=== PATIENT | male | born 1945 | race African-American/Black ===

== ENCOUNTER 2017-12-17 11:06 | Outpatient (CLI) | payer MEDICARE | END 2017-12-17 11:07 | disposition home or self-care (01) | LOC: BICRAD 11:06 | PROVIDERS: ATTEND Family Medicine | DX: J45.901 Unspecified asthma with (acute) exacerbation (principal) | CPT/HCPCS: 71046 ==

== ENCOUNTER 2018-02-10 12:22 | Outpatient (CLI) | payer MEDICARE ==
--- NOTE | 2018-02-11 15:55 | PFT ---
PATIENT HISTORY: HEIGHT: 71.5 WEIGHT: 201 SMOKER: NO HOW LON YRS PACKS PER DAY PRODUCTIVE COUGH: LUNG DISEASE: PHYSICIAN INTERPRETATION FINAL REPORT: Textile Screen Maker comments patient and good effort and cooperation FVC 1.86 (49%), FEV1 1.06 (42%), FEV1/FVC 0.57. TLC 4.19 (68%), FRC 2.28 (80%), RV 2.10 (91%). Diffusion 8.77 (36%). There is a reduction to both the FEV1 and the FVC. The ratio is consistent with obstructive profile. There is a significant improvement in the FVC (13%, 210 mL) following administration of bronchodilator. TLC is at the lower limits of normal. The other lung volumes fall within the normal limits. Diffusion capacity is severely impaired. IMPRESSION: These pulmonary function studies are consistent with severe obstructive lung disease with significant improvement following bronchodilator, and severely impaired gas exchange. The TLC is relatively inflated, but because it is low, a superimposed restrictive component to the ventilatory deficit cannot be excluded. Clinical and radiographic correlation should be considered. Textile Screen Maker: BYRON Practice Lead: BYRON PETERSON
== END 2018-02-10 12:23 | disposition home or self-care (01) ==
LOC: CP 12:22
PROVIDERS: ATTEND Internal Medicine
DX: R06.09 Other forms of dyspnea (principal); G47.33 Obstructive sleep apnea (adult) (pediatric)
CPT/HCPCS: 94060; 94727; 94729

== ENCOUNTER 2018-02-27 19:09 | Emergency (ER) | payer MEDICARE ==
--- NOTE | 2018-02-27 19:46 | RAD ---
ACUTE ABDOMINAL SERIES: 02/27/18 INDICATION: Constipation for five days. FINDINGS: The lungs are clear. Coronary artery stent is seen along the right heart border. Bowel gas pattern is unobstructed. There is a moderate amount of retained stool within the colon. There is endovascular s tents within the region of the common iliac arteries. There are cholecystectomy clips seen within the right upper quadrant. There are scattered degenerative change. IMPRESSION: Moderate amount of retained stool POS: [facility]
[2018-02-27 22:42] LABS: #Eosinphils 0.1 thou/uL (0.0-0.7); #Lymphocytes 1.3 thou/uL (1.20-3.40); #Monocytes 0.8 thou/uL (0.11-0.59); #Neutrophils 5.2 thou/uL (1.40-6.50); %Basophils 0.3 % (0.0-1.0); %Eosinophils 1.5 % (0.0-10.0); %Lymphocytes 17.8 % (21.0-51.0); %Monocytes 10.6 % (0.0-10.0); %Neutrophils 69.7 % (42.0-75.0); Hemoglobin 13.9 g/dL (14.0-18.0); Mean Corpuscular HGB CONC 32.6 g/dL (32.0-36.0); Mean Corpuscular Hemoglobin 27.8 pg (27.0-31.0); Mean Corpuscular Volume 85.5 fl (80.0-94.0); Mean Platelet Volume 7.6 fL (7.4-10.4); Platelet Count 194 thou/uL (130-400); RBC Distribution Width 14.7 % (11.5-14.5); White Blood Cell (WBC) Count 7.4 thou/uL (4.8-10.8)
[2018-02-27 23:01] LABS: ALT (SGPT) 15 U/L (8-55); AST (SGOT) 21 U/L (5-34); Albumin 4.4 g/dL (3.4-4.8); Alkaline Phosphatase 91 U/L (40-150); Anion Gap 12 mmol/L (10-20); BUN (Urea Nitrogen) 24 mg/dL (8.4-25.7); Bilirubin, Total 0.5 mg/dL (0.2-1.2); Calc. Creatinine Clearance 0 mL/min (70-130); Calcium 9.6 mg/dL (7.8-10.44); Carbon Dioxide 25 mmol/L (23-31); Chloride 107 mmol/L (98-107); Estimated GFR-MDRD 54; Globulin 3.8 g/dL (2.4-3.5); Glucose 104 mg/dL (83-110); Lipase 41 U/L (8-78); Potassium 4.2 mmol/L (3.5-5.1); Protein, Total 8.2 g/dL (5.8-8.1); Sodium 140 mmol/L (136-145)
[2018-02-27 23:28] LABS: Bilirubin Negative (Negative); Blood, Urine Negative (Negative); Clarity CLEAR (Clear); Glucose, Urine (Dipstick) Negative (Negative); Leukocyte Negative (Negative); Nitrite Negative (Negative); Protein, Urine (Dipstick) Negative (Neg-Trace); Specific Gravity, Urine 1.013 (1.002-1.036)
== END 2018-02-28 00:37 | disposition home or self-care (01) ==
LOC: ERS 19:09
DX: K59.00 Constipation, unspecified (principal); J44.9 Chronic obstructive pulmonary disease, unspecified; E11.9 Type 2 diabetes mellitus without complications; F32.9 Major depressive disorder, single episode, unspecified; E78.5 Hyperlipidemia, unspecified; I10 Essential (primary) hypertension; F41.9 Anxiety disorder, unspecified; Z85.46 Personal history of malignant neoplasm of prostate
CPT/HCPCS: 36415; 74022; 80053; 81003; 83690; 85025

== ENCOUNTER 2018-03-10 20:30 | Outpatient (CLI) | payer MEDICARE | END 2018-03-10 20:31 | disposition home or self-care (01) | LOC: SLEEPLAB 20:30 | PROVIDERS: ATTEND Internal Medicine | DX: G47.33 Obstructive sleep apnea (adult) (pediatric) (principal); G31.84 Mild cognitive impairment of uncertain or unknown etiology; E66.9 Obesity, unspecified; R06.83 Snoring; R35.1 Nocturia; I11.0 Hypertensive heart disease with heart failure; I50.9 Heart failure, unspecified; E11.9 Type 2 diabetes mellitus without complications | CPT/HCPCS: 95810 ==

== ENCOUNTER 2018-03-27 19:30 | Outpatient (CLI) | payer MEDICARE | END 2018-03-27 19:31 | disposition home or self-care (01) | LOC: SLEEPLAB 19:30 | PROVIDERS: ATTEND Internal Medicine | DX: G47.33 Obstructive sleep apnea (adult) (pediatric) (principal); I11.0 Hypertensive heart disease with heart failure; I50.9 Heart failure, unspecified; E11.9 Type 2 diabetes mellitus without complications; E66.9 Obesity, unspecified; K21.9 Gastro-esophageal reflux disease without esophagitis; R35.1 Nocturia; G31.84 Mild cognitive impairment of uncertain or unknown etiology | CPT/HCPCS: 95811 ==

== ENCOUNTER 2018-08-31 13:43 | Outpatient (CLI) | payer MEDICARE ==
--- NOTE | 2018-08-31 14:21 | RAD ---
CHEST PA AND LATERAL: History: 73-year-old male with history of dyspnea. Comparison: 11-19-17 FINDINGS: Minimal stable increased linear markings in the lung bases. Heart size is within normal limits. No co nfluent pneumonia, overt edema, or pleural effusion. IMPRESSION: Overall stable increased markings, linear, in the lung bases, little changed from prior study. No new process. POS: [facility]
== END 2018-08-31 13:44 | disposition home or self-care (01) ==
LOC: RAD 13:43
PROVIDERS: ATTEND Internal Medicine
DX: R06.00 Dyspnea, unspecified (principal); R91.8 Other nonspecific abnormal finding of lung field
CPT/HCPCS: 71046

== ENCOUNTER 2018-11-08 10:57 | Emergency (ER) | payer MEDICARE ==
--- NOTE | 2018-11-08 11:53 | RAD ---
PORTABLE CHEST ONE VIEW: Date: 11-08-18 Time: 10:39 a.m. History: Cough FINDINGS: Comparison is made with exam of 08-31-18. The heart size is normal. Mild chronic changes are stable. No focal areas of consolidation, pneumothoraces or pleural effusions are identified. IMPRESSION: No acute process. POS: [facility]
[2018-11-08 11:57] LABS: #Eosinphils 0.1 thou/uL (0.0-0.7); #Monocytes 0.6 thou/uL (0.11-0.59); #Neutrophils 4.9 thou/uL (1.40-6.50); %Basophils 0.5 % (0.0-1.0); %Eosinophils 2.2 % (0.0-10.0); %Lymphocytes 15.4 % (21.0-51.0); %Monocytes 9.4 % (0.0-10.0); %Neutrophils 72.6 % (42.0-75.0); Hemoglobin 12.8 g/dL (14.0-18.0); Mean Corpuscular HGB CONC 30.3 g/dL (32.0-36.0); Mean Corpuscular Volume 85.9 fL (78.0-98.0); Platelet Count 250 thou/uL (130-400); RBC Distribution Width 15.8 % (11.5-14.5); Red Blood Cell (RBC) Count 4.92 mill/uL (4.70-6.10); White Blood Cell (WBC) Count 6.7 thou/uL (4.8-10.8)
[2018-11-08 12:17] LABS: ALT (SGPT) 11 U/L (8-55); AST (SGOT) 15 U/L (5-34); Albumin 3.9 g/dL (3.4-4.8); Alkaline Phosphatase 79 U/L (40-150); Anion Gap 15 mmol/L (10-20); BUN (Urea Nitrogen) 22 mg/dL (8.4-25.7); Bilirubin, Total 0.5 mg/dL (0.2-1.2); CK (CPK) 82 U/L (30-200); Calc. Creatinine Clearance 0 mL/min (70-130); Calcium 9.3 mg/dL (7.8-10.44); Carbon Dioxide 26 mmol/L (23-31); Chloride 102 mmol/L (98-107); Estimated GFR-MDRD 51; Globulin 3.6 g/dL (2.4-3.5); Glucose 182 mg/dL (83-110); Potassium 3.9 mmol/L (3.5-5.1); Protein, Total 7.5 g/dL (5.8-8.1); Sodium 139 mmol/L (136-145)
[2018-11-08] MEDS ORDERED: Furosemide 40 MG/4 ML VIAL ONE (12:35)
[2018-11-08 12:38] LABS: CKMB 2.2 ng/mL (0-6.6)
== END 2018-11-08 15:23 | disposition home or self-care (01) ==
LOC: ERS 10:57
DX: J81.1 Chronic pulmonary edema (principal); E11.9 Type 2 diabetes mellitus without complications; E78.5 Hyperlipidemia, unspecified; I10 Essential (primary) hypertension; F41.9 Anxiety disorder, unspecified; F32.9 Major depressive disorder, single episode, unspecified; J44.9 Chronic obstructive pulmonary disease, unspecified; Z79.899 Other long term (current) drug therapy; Z79.84 Long term (current) use of oral hypoglycemic drugs
CPT/HCPCS: 36415; 71045; 80053; 82550; 82553; 83880; 84484; 85025; 93005; 96374; J1940

== ENCOUNTER 2019-05-04 09:22 | Outpatient (CLI) | payer MEDICARE ==
--- NOTE | 2019-05-04 11:34 | CT ---
CT ABDOMEN WITH ORAL AND IV CONTRAST: Date: 05/04/19 HISTORY: Epigastric pain with nausea. FINDINGS: Comparison made with exam of 06/30/16. Chronic changes in the lung bases are again seen. Changes of fatty infiltration of the liver again se en. The patient is post cholecystectomy. The spleen, pancreas, adrenal glands, and right kidney are n ormal. Left renal cyst is again seen. No free air, free fluid, or lymphadenopathy seen in the abdomen. There are vascular calcifications wi th a 3 cm infrarenal abdominal aortic aneurysm. Bilateral common iliac artery stents are again seen. The small bowel loops are not abnormally dilated. There is colonic diverticulosis. Degenerative carlos es are present in the spine. IMPRESSION: 1. Colonic diverticulosis. 2. 3.0 cm abdominal aortic aneurysm. 3. Fatty liver. 4. Left renal cyst. POS: [facility]
[2019-05-04] MEDS ORDERED: ISOVUE-370 76%-LOCM 1 ML ONE (13:43)
== END 2019-05-04 09:23 | disposition home or self-care (01) ==
LOC: BICCT 09:22
PROVIDERS: ATTEND Physician Assistant Medical
DX: R10.13 Epigastric pain (principal); R53.83 Other fatigue; K21.9 Gastro-esophageal reflux disease without esophagitis; K59.00 Constipation, unspecified; D64.9 Anemia, unspecified; K57.30 Diverticulosis of large intestine without perforation or abscess without bleeding; I71.4 Abdominal aortic aneurysm, without rupture; K76.0 Fatty (change of) liver, not elsewhere classified; N28.1 Cyst of kidney, acquired
CPT/HCPCS: 74160; 82565; Q9966

== ENCOUNTER 2020-12-03 09:35 | Emergency (ER) | payer MEDICARE | END 2020-12-03 14:18 | LOC: ERS 09:35 | DX: R06.02 Shortness of breath (principal) | CPT/HCPCS: 99284 ==

== ENCOUNTER 2020-12-23 16:54 | Inpatient (IN) | payer MEDICARE ==
[2020-12-23 17:42] LABS: #Lymphocytes 1.1 thou/uL (1.20-3.40); #Monocytes 0.6 thou/uL (0.11-0.59); #Neutrophils 3.5 thou/uL (1.40-6.50); %Basophils 0.1 % (0.0-1.0); %Eosinophils 0.5 % (0.0-10.0); %Monocytes 11.4 % (0.0-10.0); Hemoglobin 8.7 g/dL (14.0-18.0); Mean Corpuscular Hemoglobin 23.9 pg (27.0-31.0); Mean Corpuscular Volume 77.2 fL (78.0-98.0); Mean Platelet Volume 8.8 fL (7.4-10.4); Platelet Count 229 thou/uL (130-400); RBC Distribution Width 18.8 % (11.5-14.5); Red Blood Cell (RBC) Count 3.63 mill/uL (4.70-6.10); White Blood Cell (WBC) Count 5.2 thou/uL (4.8-10.8)
[2020-12-23] MEDS ORDERED: DOPamine 400 MG/D5W 250 ML 250 ML ONE (17:42)
[2020-12-23 18:05] LABS: ALT (SGPT) 19 U/L (8-55); AST (SGOT) 18 U/L (5-34); Albumin 3.6 g/dL (3.4-4.8); Alkaline Phosphatase 67 U/L (40-110); Anion Gap 19 mmol/L (10-20); BUN (Urea Nitrogen) 68 mg/dL (8.4-25.7); Bilirubin, Total 0.7 mg/dL (0.2-1.2); Calc. Creatinine Clearance 0 mL/min (70-130); Calcium 8.4 mg/dL (7.8-10.44); Carbon Dioxide 19 mmol/L (23-31); Chloride 106 mmol/L (98-107); Globulin 3.1 g/dL (2.4-3.5); Glucose 120 mg/dL (83-110); Lipase 13 U/L (8-78); Potassium 5.9 mmol/L (3.5-5.1); Protein, Total 6.7 g/dL (5.8-8.1); Sodium 138 mmol/L (136-145)
[2020-12-23 18:27] LABS: CKMB 3.6 ng/mL (0-6.6)
[2020-12-23] MEDS ORDERED: INSULIN REGULAR IN 0.9 % NACL 100 UNIT/100 ML BAG ONE (18:58)
[2020-12-23] MEDS ORDERED: Dextrose 50% Abboject 50 ML SYRINGE ONE (18:58)
[2020-12-23] MEDS ORDERED: Insulin Regular 300 UNITS/3 ML VIAL ONE (19:01)
[2020-12-23] MEDS ORDERED: Acetaminophen 325 MG TAB PO PRN (19:39)
[2020-12-23] MEDS ORDERED: Albuterol Sulfate 2.5 mg/3 ml Neb NEB PRN (19:42)
[2020-12-23] MEDS ORDERED: Sodium Chloride 0.9% 1,000 ML IV SCH (19:45)
[2020-12-23 20:01] LABS: Analyzer IN Cardio ER; Base Excess (BEa) -9.6 mEq/L (-2.0 to +3.0); CO2 Tension 33.5 mmHg (35.0-45.0); Calcium, Ionized (arterial) 1.15 mmol/L (1.12-1.30); Carboxyhemoglobin (COHb) 0.4 gm% (0.0-3.0); Hemoglobin (Hb) 9.8 g/dL (14.0-18.0); O2 Tension (PaO2), arterial 140.2 mmHg (> 70.0); Potassium - ABG Lab 4.88 mmol/L (3.70-5.30)
[2020-12-23 20:47] LABS: SARS-CoV-2 NAA Rapid Test Not Detected (NotDetected)
[2020-12-23 21:01] LABS: Puncture Site RRA
[2020-12-23 21:04] LABS: ALV-art Gradient 245.725 mmHg (0-20)
[2020-12-23] MEDS ORDERED: Sodium Bicarbonate 150 MEQ in Dextrose 5% in Water 1,000 ML IV SCH (22:00)
[2020-12-23] MEDS ORDERED: Sodium Bicarb 50 MEQ/50 ML Abboject 8.4% SYRINGE IVP SCH (22:45)
[2020-12-23] MEDS: methylPREDNISolone Sod Succ 40 MG VIAL IVP SCH (23:11)
[2020-12-23 23:34] LABS: Anion Gap 19 mmol/L (10-20); BUN (Urea Nitrogen) 66 mg/dL (8.4-25.7); Calc. Creatinine Clearance 0 mL/min (70-130); Calcium 8.3 mg/dL (7.8-10.44); Carbon Dioxide 17 mmol/L (23-31); Chloride 108 mmol/L (98-107); Glucose 89 mg/dL (83-110); Potassium 5.5 mmol/L (3.5-5.1); Sodium 138 mmol/L (136-145)
[2020-12-23 23:42] VITALS: BMI 28.4
[2020-12-24] MEDS: Ondansetron PF 4 MG/2 ML Vial IVP PRN (02:49)
[2020-12-24] MEDS: DOPamine 400 MG/D5W 250 ML 250 ML IVPB SCH ×2 (03:50→16:38)
[2020-12-24 05:27] LABS: Bacteria/HPF None Seen HPF (None Seen); Bilirubin Negative (Negative); Blood, Urine 3+ (Negative); Clarity Extra Turbid (Clear); Glucose, Urine (Dipstick) Normal (Negative); Ketone, Urine Negative (Negative); Leukocyte 75 Leu/uL (Negative); Nitrite Negative (Negative); Protein, Urine (Dipstick) 300 mg/dL (Neg-Trace); RBC/HPF Greater than 50 HPF (0-3); Specific Gravity, Urine 1.022 (1.002-1.036); WBC/HPF 21-50 HPF (0-3)
[2020-12-24 05:45] LABS: Creatinine, Urine 151.35 mg/dL (63-166)
[2020-12-24 05:52] LABS: Urine Culture Reflex No No
[2020-12-24] MEDS: methylPREDNISolone Sod Succ 40 MG VIAL IVP SCH ×3 (06:13→22:02)
[2020-12-24 06:39] LABS: #Lymphocytes 0.6 thou/uL (1.20-3.40); #Monocytes 0.2 thou/uL (0.11-0.59); #Neutrophils 6.8 thou/uL (1.40-6.50); %Lymphocytes 8.2 % (21.0-51.0); %Monocytes 2.6 % (0.0-10.0); %Neutrophils 89.2 % (42.0-75.0); Hemoglobin 9.2 g/dL (14.0-18.0); Mean Corpuscular HGB CONC 29.5 g/dL (32.0-36.0); Mean Corpuscular Hemoglobin 22.9 pg (27.0-31.0); Mean Corpuscular Volume 77.4 fL (78.0-98.0); Mean Platelet Volume 9.4 fL (7.4-10.4); Platelet Count 269 thou/uL (130-400); Red Blood Cell (RBC) Count 4.04 mill/uL (4.70-6.10); White Blood Cell (WBC) Count 7.6 thou/uL (4.8-10.8)
[2020-12-24 06:57] LABS: Anion Gap 21 mmol/L (10-20); BUN (Urea Nitrogen) 64 mg/dL (8.4-25.7); Calc. Creatinine Clearance 17 mL/min (70-130); Calcium 8.2 mg/dL (7.8-10.44); Carbon Dioxide 14 mmol/L (23-31); Chloride 101 mmol/L (98-107); Glucose 370 mg/dL (83-110); Potassium 5.6 mmol/L (3.5-5.1); Sodium 130 mmol/L (136-145)
[2020-12-24 06:58] LABS: Iron 24 ug/dL (65-175); Iron Binding Capacity, Total 370 mcg/dL (261-462)
[2020-12-24] MEDS ORDERED: Albumin 25% 25 GM/100 ML BOT IVPB SCH (07:45)
[2020-12-24] MEDS ORDERED: Furosemide 100 MG/10 ML VIAL SLOW IVP SCH (07:45)
[2020-12-24] MEDS ORDERED: Dextrose 5% in Water 1,000 ML IV PRN (11:15)
[2020-12-24] MEDS: Iron, Sodium Ferric Gluconate 250 MG in Sodium Chloride 0.9% 100 ML IVPB SCH (11:51)
[2020-12-24] MEDS: Insulin Regular 300 UNITS/3 ML VIAL SC PRN ×2 (11:53→22:02)
[2020-12-24] MEDS ORDERED: Sodium Bicarbonate 150 MEQ in Dextrose 5% in Water 1,000 ML IV SCH ×2 (14:30→21:00)
[2020-12-24 15:05] LABS: Anion Gap 21 mmol/L (10-20); BUN (Urea Nitrogen) 42 mg/dL (8.4-25.7); BUN/Creatinine Ratio 8.09; Calc. Creatinine Clearance 16 mL/min (70-130); Calcium 8.3 mg/dL (7.8-10.44); Carbon Dioxide 19 mmol/L (23-31); Chloride 103 mmol/L (98-107); Glucose 204 mg/dL (83-110); Phosphorus 6.6 mg/dL (2.3-4.7); Potassium 5.4 mmol/L (3.5-5.1); Sodium 138 mmol/L (136-145)
[2020-12-24] MEDS: Sodium Bicarbonate Tab 325 MG TAB PO SCH ×2 (15:39→22:01)
[2020-12-24 15:53] LABS: Complement-C4 33.1 mg/dL (15-53)
[2020-12-24] MEDS ORDERED: metFORMIN 500 MG TAB PO SCH (17:00)
[2020-12-24 20:31] LABS: Anion Gap 22 mmol/L (10-20); BUN (Urea Nitrogen) 76 mg/dL (8.4-25.7); Calc. Creatinine Clearance 16 mL/min (70-130); Calcium 8.3 mg/dL (7.8-10.44); Carbon Dioxide 20 mmol/L (23-31); Chloride 101 mmol/L (98-107); Glucose 167 mg/dL (83-110); Potassium 5.4 mmol/L (3.5-5.1); Sodium 138 mmol/L (136-145)
[2020-12-25] MEDS: DOPamine 400 MG/D5W 250 ML 250 ML IVPB SCH (03:58)
[2020-12-25 04:04] LABS: #Lymphocytes 0.6 thou/uL (1.20-3.40); #Monocytes 0.6 thou/uL (0.11-0.59); #Neutrophils 10.8 thou/uL (1.40-6.50); %Lymphocytes 4.8 % (21.0-51.0); %Neutrophils 90.2 % (42.0-75.0); Mean Corpuscular Hemoglobin 23.1 pg (27.0-31.0); Mean Corpuscular Volume 76.9 fL (78.0-98.0); Mean Platelet Volume 9.3 fL (7.4-10.4); Platelet Count 278 thou/uL (130-400); Red Blood Cell (RBC) Count 3.91 mill/uL (4.70-6.10)
[2020-12-25] MEDS: methylPREDNISolone Sod Succ 40 MG VIAL IVP SCH ×3 (04:07→20:41)
[2020-12-25 04:31] LABS: Albumin 4.1 g/dL (3.4-4.8); Anion Gap 22 mmol/L (10-20); BUN (Urea Nitrogen) 72 mg/dL (8.4-25.7); BUN/Creatinine Ratio 12.86; Calc. Creatinine Clearance 15 mL/min (70-130); Calcium 8.3 mg/dL (7.8-10.44); Carbon Dioxide 23 mmol/L (23-31); Chloride 98 mmol/L (98-107); Glucose 168 mg/dL (83-110); Phosphorus 7.8 mg/dL (2.3-4.7); Potassium 4.9 mmol/L (3.5-5.1); Sodium 138 mmol/L (136-145)
[2020-12-25] MEDS: Insulin Regular 300 UNITS/3 ML VIAL SC PRN ×2 (07:20→11:33)
[2020-12-25] MEDS: Sodium Bicarbonate Tab 325 MG TAB PO SCH ×3 (09:15→20:40)
[2020-12-25] MEDS: Clopidogrel Bisulfate 75 MG TAB PO SCH (09:15)
[2020-12-25] MEDS: Insulin Glargine 5 UNITS in Pre-Filled Syringe 1 EACH SC SCH (09:16)
[2020-12-25] MEDS: Iron, Sodium Ferric Gluconate 250 MG in Sodium Chloride 0.9% 100 ML IVPB SCH (10:16)
[2020-12-25] MEDS ORDERED: Bisacodyl 10 MG SUPP PR SCH (12:00)
[2020-12-25 16:49] LABS: 24 Hr Creatinine 167.75 mg/24 hr (950-2490); Creatinine, Urine 152.5 mg/dL (63-166)
[2020-12-25] MEDS ORDERED: Furosemide 100 MG/10 ML VIAL SLOW IVP SCH (18:30)
[2020-12-25] MEDS: Melatonin 3 MG TAB PO PRN (20:40)
[2020-12-25] MEDS: Atorvastatin Calcium 20 MG TAB PO SCH (20:40)
[2020-12-25 22:47] LABS: HBSAB Concentration Less than 8.00 mIU/mL; HBSAg Index 0.15 S/CO (0-0.99); Hep B Core Total Ab Non-Reactive (NonReactive); Hep B Core Total Index 0.07 S/CO (0-0.79); Hep B Surf AB Non-Reactive (NonReactive); Hep B Surf Ag Non-Reactive S/CO (NonReactive); Hep C IgG Ab Non-Reactive (NonReactive); Hep C Index 0.09 S/CO (0-0.79)
[2020-12-26 04:48] LABS: #Lymphocytes 0.6 thou/uL (1.20-3.40); #Monocytes 0.5 thou/uL (0.11-0.59); #Neutrophils 9.7 thou/uL (1.40-6.50); %Eosinophils 0.1 % (0.0-10.0); %Lymphocytes 5.2 % (21.0-51.0); %Monocytes 4.9 % (0.0-10.0); %Neutrophils 89.8 % (42.0-75.0); Hemoglobin 8.8 g/dL (14.0-18.0); Mean Corpuscular HGB CONC 30.5 g/dL (32.0-36.0); Mean Corpuscular Hemoglobin 23.1 pg (27.0-31.0); Mean Corpuscular Volume 75.8 fL (78.0-98.0); Platelet Count 254 thou/uL (130-400); RBC Distribution Width 18.8 % (11.5-14.5); White Blood Cell (WBC) Count 10.8 thou/uL (4.8-10.8)
[2020-12-26 05:00] LABS: Albumin 3.9 g/dL (3.4-4.8); Anion Gap 20 mmol/L (10-20); BUN (Urea Nitrogen) 87 mg/dL (8.4-25.7); BUN/Creatinine Ratio 13.88; Calc. Creatinine Clearance 13 mL/min (70-130); Calcium 8.2 mg/dL (7.8-10.44); Carbon Dioxide 25 mmol/L (23-31); Chloride 98 mmol/L (98-107); Glucose 151 mg/dL (83-110); Phosphorus 8.5 mg/dL (2.3-4.7); Potassium 4.1 mmol/L (3.5-5.1); Sodium 139 mmol/L (136-145)
[2020-12-26] MEDS ORDERED: Lidocaine 1% w/Epinephrine 1:100K 20 ML VIAL ONE (06:49)
[2020-12-26] MEDS ORDERED: Bupivacaine 0.25% HCL 30 ML VIAL ONE (06:49)
[2020-12-26] MEDS ORDERED: Sodium Chloride 0.9% 20 ML ONE (06:52)
[2020-12-26] MEDS ORDERED: Heparin 10,000 UNITS/ 10 ML VIAL ONE ×2 (06:52→10:08)
[2020-12-26] MEDS ORDERED: PROPOFOL 20 ML ONE (07:10)
[2020-12-26] MEDS ORDERED: Ketamine 50 MG/ML (10ML VIAL) ONE (07:10)
[2020-12-26] MEDS ORDERED: Midazolam HCl 2 mg/2 ml Vial ONE (07:10)
[2020-12-26] MEDS ORDERED: Fentanyl 100 MCG/2 ML VIAL ONE (07:10)
[2020-12-26] MEDS: Clopidogrel Bisulfate 75 MG TAB PO SCH (10:00)
[2020-12-26] MEDS: Insulin Glargine 5 UNITS in Pre-Filled Syringe 1 EACH SC SCH (10:00)
[2020-12-26] MEDS: Sodium Bicarbonate Tab 325 MG TAB PO SCH ×3 (10:01→20:01)
[2020-12-26] MEDS: methylPREDNISolone Sod Succ 40 MG VIAL IVP SCH ×3 (10:02→20:01)
[2020-12-26] MEDS ORDERED: Iron, Sodium Ferric Gluconate 250 MG in Sodium Chloride 0.9% 100 ML IVPB SCH (10:15)
[2020-12-26] MEDS: Iron, Sodium Ferric Gluconate 250 MG in Sodium Chloride 0.9% 100 ML IVPB SCH (10:20)
[2020-12-26] MEDS ORDERED: Lidocaine 1% (PF) 30 ML VIAL ONE (11:28)
[2020-12-26 17:14] LABS: Kappa Lambda Light Chain Ratio 0.86 (0.26-1.65); Kappa Light Chains 207.8 mg/L (3.3-19.4); Lambda Light Chain 242.9 mg/L (5.7-26.3)
[2020-12-26] MEDS: Atorvastatin Calcium 20 MG TAB PO SCH (20:01)
[2020-12-27] MEDS: Insulin Regular 300 UNITS/3 ML VIAL SC PRN (03:18)
[2020-12-27 04:33] LABS: Albumin 3.7 g/dL (3.4-4.8); Anion Gap 20 mmol/L (10-20); BUN (Urea Nitrogen) 70 mg/dL (8.4-25.7); BUN/Creatinine Ratio 14.31; Calc. Creatinine Clearance 17 mL/min (70-130); Calcium 8.1 mg/dL (7.8-10.44); Carbon Dioxide 25 mmol/L (23-31); Chloride 97 mmol/L (98-107); Glucose 158 mg/dL (83-110); Phosphorus 6.8 mg/dL (2.3-4.7); Potassium 3.8 mmol/L (3.5-5.1); Sodium 138 mmol/L (136-145)
[2020-12-27] MEDS: methylPREDNISolone Sod Succ 40 MG VIAL IVP SCH (06:12)
[2020-12-27] MEDS: Sodium Bicarbonate Tab 325 MG TAB PO SCH (08:52)
[2020-12-27] MEDS: Insulin Glargine 5 UNITS in Pre-Filled Syringe 1 EACH SC SCH (08:53)
[2020-12-27] MEDS: Clopidogrel Bisulfate 75 MG TAB PO SCH (08:53)
[2020-12-27] MEDS: predniSONE 20 MG TAB PO SCH (08:53)
[2020-12-27 09:38] LABS: Albumin, PEP 24hr Ur 39.5 % (NOT ESTAB.); Alpha-1-Globulin, PEP 24h Ur 2.2 % (NOT ESTAB.); Alpha-2-Globulin, PEP 24h Ur 5.4 % (NOT ESTAB.); Beta Globulin, PEP 24h Ur 27.3 % (NOT ESTAB.); Gamma Globulin, PEP 24h Ur 25.7 % (NOT ESTAB.); M-Spike,% PEP 24hr Ur Note: % (Not Observed); Protein, Urine 652.9 mg/dL (Not Estab.)
[2020-12-27] MEDS ORDERED: Heparin 10,000 UNITS/ 10 ML VIAL ONE (11:44)
[2020-12-27] MEDS ORDERED: EPOETIN ALFA-EPBX (ESRD) 3,000 UNIT/ML VIAL SC SCH (13:15)
[2020-12-27] MEDS: EPOETIN ALFA-EPBX (ESRD) 2,000 UNIT/ML VIAL SC SCH (13:43)
[2020-12-27] MEDS: EPOETIN ALFA-EPBX (ESRD) 3,000 UNIT/ML VIAL SC SCH (13:43)
[2020-12-27] MEDS: Atorvastatin Calcium 20 MG TAB PO SCH (20:15)
[2020-12-28 05:09] LABS: Albumin 3.8 g/dL (3.4-4.8); Anion Gap 19 mmol/L (10-20); BUN (Urea Nitrogen) 53 mg/dL (8.4-25.7); BUN/Creatinine Ratio 14.36; Calc. Creatinine Clearance 22 mL/min (70-130); Calcium 8.6 mg/dL (7.8-10.44); Carbon Dioxide 27 mmol/L (23-31); Chloride 98 mmol/L (98-107); Glucose 150 mg/dL (83-110); Phosphorus 4.7 mg/dL (2.3-4.7); Potassium 3.7 mmol/L (3.5-5.1); Sodium 140 mmol/L (136-145)
[2020-12-28 07:19] LABS: Hemoglobin 9.2 g/dL (14.0-18.0); Mean Corpuscular HGB CONC 30.6 g/dL (32.0-36.0); Mean Corpuscular Hemoglobin 23.3 pg (27.0-31.0); Mean Corpuscular Volume 75.9 fL (78.0-98.0); Mean Platelet Volume 9.6 fL (7.4-10.4); Platelet Count 226 thou/uL (130-400); RBC Distribution Width 18.9 % (11.5-14.5); Red Blood Cell (RBC) Count 3.94 mill/uL (4.70-6.10); White Blood Cell (WBC) Count 11.3 thou/uL (4.8-10.8)
[2020-12-28] MEDS: Clopidogrel Bisulfate 75 MG TAB PO SCH (07:45)
[2020-12-28] MEDS: predniSONE 20 MG TAB PO SCH (07:45)
[2020-12-28] MEDS: Insulin Glargine 5 UNITS in Pre-Filled Syringe 1 EACH SC SCH (07:46)
[2020-12-28] MEDS ORDERED: Heparin 10,000 UNITS/ 10 ML VIAL ONE (10:22)
[2020-12-28 14:14] LABS: Alb/Glob Ratio 1.1 (0.7-1.7); Albumin 3.6 g/dL (2.9-4.4); Alpha-1-Globulin 0.3 g/dL (0.0-0.4); Alpha-2-Globulin 0.8 g/dL (0.4-1.0); Gamma-Globulin 1.3 g/dL (0.4-1.8); Globulin, Total 3.3 g/dL (2.2-3.9); IgA - Total IgA (Sendout) 418 mg/dL (61-437); Immunoglobulin - G (Sendout) 1094 mg/dL (603-1613); Immunoglobulin - M (Sendout) 54 mg/dL (15-143); M-Spike 0.2 g/dL (Not Observed)
[2020-12-28 16:03] LABS: ANA Symphony (Qualitative) Negative (Negative); ANA Symphony (Quantitative) 0.4 Ratio (< 0.7 Negative); dsDNA IgG Antibody 0.6 IU/mL (<10 Negative)
[2020-12-28] MEDS: Atorvastatin Calcium 20 MG TAB PO SCH (20:31)
[2020-12-28] MEDS: Insulin Glargine 10 UNITS in Pre-Filled Syringe 1 EACH SC SCH (21:46)
[2020-12-29 03:51] LABS: Hemoglobin 9.2 g/dL (14.0-18.0); Mean Corpuscular HGB CONC 30.6 g/dL (32.0-36.0); Mean Corpuscular Hemoglobin 23.2 pg (27.0-31.0); Mean Corpuscular Volume 75.6 fL (78.0-98.0); Platelet Count 200 thou/uL (130-400); Red Blood Cell (RBC) Count 3.97 mill/uL (4.70-6.10); White Blood Cell (WBC) Count 10.3 thou/uL (4.8-10.8)
[2020-12-29] MEDS: Insulin Glargine 5 UNITS in Pre-Filled Syringe 1 EACH SC SCH (09:43)
[2020-12-29] MEDS: predniSONE 20 MG TAB PO SCH (09:44)
[2020-12-29] MEDS: Calcitriol 0.25 MCG CAP PO SCH (09:44)
[2020-12-29] MEDS: Clopidogrel Bisulfate 75 MG TAB PO SCH (09:44)
[2020-12-29 13:20] LABS: Albumin 3.8 g/dL (3.4-4.8); Anion Gap 15 mmol/L (10-20); BUN (Urea Nitrogen) 41 mg/dL (8.4-25.7); BUN/Creatinine Ratio 16.02; Calc. Creatinine Clearance 32 mL/min (70-130); Calcium 8.8 mg/dL (7.8-10.44); Carbon Dioxide 29 mmol/L (23-31); Chloride 98 mmol/L (98-107); Glucose 159 mg/dL (83-110); Phosphorus 2.6 mg/dL (2.3-4.7); Sodium 138 mmol/L (136-145)
[2020-12-29] MEDS ORDERED: Torsemide 20 MG TAB PO SCH (16:15)
[2020-12-29] MEDS: Insulin Regular 300 UNITS/3 ML VIAL SC PRN (17:00)
[2020-12-29] MEDS: Insulin Glargine 10 UNITS in Pre-Filled Syringe 1 EACH SC SCH (20:31)
[2020-12-29] MEDS ORDERED: Sodium Chloride 0.9% 1,000 ML IV SCH (21:00)
[2020-12-29 21:15] LABS: Hemoglobin 10.7 g/dL (14.0-18.0)
[2020-12-29] MEDS ORDERED: Sodium Chloride 0.9% 250 ML IV SCH (21:15)
[2020-12-29 21:30] LABS: Lactic Acid 2.3 mmol/L (0.5-2.2)
[2020-12-29 21:34] LABS: Anion Gap 18 mmol/L (10-20); BUN (Urea Nitrogen) 49 mg/dL (8.4-25.7); Calc. Creatinine Clearance 32 mL/min (70-130); Calcium 8.9 mg/dL (7.8-10.44); Carbon Dioxide 21 mmol/L (23-31); Chloride 99 mmol/L (98-107); Glucose 203 mg/dL (83-110); Magnesium 1.9 mg/dL (1.6-2.6); Sodium 134 mmol/L (136-145)
[2020-12-29] MEDS ORDERED: Insulin Regular 300 UNITS/3 ML VIAL SC PRN (21:35)
[2020-12-29] MEDS: Atorvastatin Calcium 20 MG TAB PO SCH (21:45)
[2020-12-30 05:59] LABS: Lactic Acid 1.3 mmol/L (0.5-2.2)
[2020-12-30 06:00] LABS: Albumin 3.5 g/dL (3.4-4.8); Anion Gap 16 mmol/L (10-20); BUN (Urea Nitrogen) 48 mg/dL (8.4-25.7); BUN/Creatinine Ratio 19.28; Calc. Creatinine Clearance 33 mL/min (70-130); Calcium 9.1 mg/dL (7.8-10.44); Carbon Dioxide 27 mmol/L (23-31); Chloride 100 mmol/L (98-107); Glucose 139 mg/dL (83-110); Phosphorus 2.5 mg/dL (2.3-4.7); Potassium 3.9 mmol/L (3.5-5.1); Sodium 139 mmol/L (136-145)
[2020-12-30 06:05] LABS: ALT (SGPT) 31 U/L (8-55); AST (SGOT) 30 U/L (5-34); Albumin 3.5 g/dL (3.4-4.8); Alkaline Phosphatase 103 U/L (40-110); Anion Gap 15 mmol/L (10-20); BUN (Urea Nitrogen) 49 mg/dL (8.4-25.7); Bilirubin, Total 1.1 mg/dL (0.2-1.2); Calc. Creatinine Clearance 33 mL/min (70-130); Carbon Dioxide 28 mmol/L (23-31); Chloride 99 mmol/L (98-107); Glucose 141 mg/dL (83-110); Magnesium 1.9 mg/dL (1.6-2.6); Potassium 3.8 mmol/L (3.5-5.1); Protein, Total 6.5 g/dL (5.8-8.1); Sodium 138 mmol/L (136-145)
[2020-12-30 06:21] LABS: Bacteria/HPF None Seen HPF (None Seen); Bilirubin Negative (Negative); Blood, Urine 1+ (Negative); Clarity Clear (Clear); Glucose, Urine (Dipstick) Normal (Negative); Ketone, Urine Negative (Negative); Leukocyte 75 Leu/uL (Negative); Nitrite Negative (Negative); Protein, Urine (Dipstick) 30 mg/dL (Neg-Trace); Squamous Epithelial 0-3 HPF (0-3); Urobilinogen Normal mg/dL (Less than 2); WBC/HPF 0-3 HPF (0-3); pH, Urine 6.5 (5.0-9.0)
[2020-12-30 06:22] LABS: Urine Culture Reflex Yes Yes
[2020-12-30 08:22] LABS: Anisocytosis MODERATE=16-30 cells (100X) (0-5/hpf); Band 1 % (5-11); Hemoglobin 10.8 g/dL (14.0-18.0); Lymphocytes 10 % (21-51); MDiff Complete? YES; Mean Corpuscular HGB CONC 31.2 g/dL (32.0-36.0); Mean Corpuscular Hemoglobin 23.6 pg (27.0-31.0); Mean Corpuscular Volume 75.7 fL (78.0-98.0); Mean Platelet Volume 10.1 fL (7.4-10.4); Monocytes 7 % (0-10); Neutrophil 82 % (42-75); Ovalocytes SLIGHT = 2-5 cells (100X) (0-1/hpf); Platelet Count 214 thou/uL (130-400); Poikilocytosis MODERATE=16-30 cells (100X) (0-5/hpf); Polychromasia SLIGHT = 2-3 cells (100X) (0-2/hpf); Red Blood Cell (RBC) Count 4.57 mill/uL (4.70-6.10); White Blood Cell (WBC) Count 14.4 thou/uL (4.8-10.8)
[2020-12-30] MEDS: predniSONE 20 MG TAB PO SCH (08:43)
[2020-12-30] MEDS: Clopidogrel Bisulfate 75 MG TAB PO SCH (08:43)
[2020-12-30] MEDS: Calcitriol 0.25 MCG CAP PO SCH (08:43)
[2020-12-30] MEDS: Insulin Glargine 5 UNITS in Pre-Filled Syringe 1 EACH SC SCH ×2 (09:50→21:29)
[2020-12-30] MEDS: Torsemide 100 MG TAB PO SCH (09:52)
[2020-12-30] MEDS: Insulin Regular 300 UNITS/3 ML VIAL SC PRN ×2 (11:53→17:57)
[2020-12-30] MEDS: Atorvastatin Calcium 20 MG TAB PO SCH (21:29)
[2020-12-30] MEDS: Melatonin 3 MG TAB PO PRN (21:29)
[2020-12-30 21:50] LABS: Anion Gap 16 mmol/L (10-20); Carbon Dioxide 28 mmol/L (23-31); Chloride 99 mmol/L (98-107); Magnesium 1.7 mg/dL (1.6-2.6); Phosphorus 2.9 mg/dL (2.3-4.7); Sodium 139 mmol/L (136-145)
[2020-12-30] MEDS ORDERED: Magnesium 2 GM/50 ML 2 GM in Premix Bag 1 BAG IVPB SCH (22:30)
[2020-12-30] MEDS: Senokot 8.6 MG TAB PO PRN (22:51)
[2020-12-31 06:17] LABS: Albumin 3.3 g/dL (3.4-4.8); Anion Gap 15 mmol/L (10-20); BUN (Urea Nitrogen) 56 mg/dL (8.4-25.7); BUN/Creatinine Ratio 22.31; Calc. Creatinine Clearance 33 mL/min (70-130); Calcium 8.7 mg/dL (7.8-10.44); Carbon Dioxide 31 mmol/L (23-31); Chloride 99 mmol/L (98-107); Glucose 110 mg/dL (83-110); Magnesium 2.2 mg/dL (1.6-2.6); Phosphorus 3.7 mg/dL (2.3-4.7); Potassium 3.9 mmol/L (3.5-5.1); Sodium 141 mmol/L (136-145)
[2020-12-31] MEDS: predniSONE 20 MG TAB PO SCH (08:32)
[2020-12-31] MEDS: Calcitriol 0.25 MCG CAP PO SCH (08:32)
[2020-12-31] MEDS: Clopidogrel Bisulfate 75 MG TAB PO SCH (08:32)
[2020-12-31] MEDS: Magnesium Oxide 250 MG TAB PO SCH (08:33)
[2020-12-31] MEDS: Insulin Glargine 5 UNITS in Pre-Filled Syringe 1 EACH SC SCH ×2 (08:57→21:03)
[2020-12-31] MEDS: Torsemide 100 MG TAB PO SCH (09:02)
[2020-12-31 11:04] LABS: Urine Total Volume 2975 mL (250-2400)
[2020-12-31] MEDS: Ondansetron PF 4 MG/2 ML Vial IVP PRN (11:09)
[2020-12-31] MEDS: Insulin Regular 300 UNITS/3 ML VIAL SC PRN ×2 (11:11→16:57)
[2020-12-31 11:53] LABS: 24 Hr Creatinine 820.8 mg/24 hr (950-2490); Creatinine, Urine 27.59 mg/dL (63-166)
[2020-12-31 11:54] LABS: Protein - 24 Hr 506 mg/24 hr (Less than 300); Protein, Urine 17 mg/dL (1-14)
[2020-12-31 12:01] LABS: #Eosinphils 0.1 thou/uL (0.0-0.7); #Lymphocytes 0.7 thou/uL (1.20-3.40); #Monocytes 0.7 thou/uL (0.11-0.59); #Neutrophils 11.6 thou/uL (1.40-6.50); %Basophils 0.1 % (0.0-1.0); %Eosinophils 0.5 % (0.0-10.0); %Lymphocytes 5.7 % (21.0-51.0); %Monocytes 4.9 % (0.0-10.0); %Neutrophils 88.8 % (42.0-75.0); Hemoglobin 10.3 g/dL (14.0-18.0); Mean Corpuscular HGB CONC 30.1 g/dL (32.0-36.0); Mean Corpuscular Hemoglobin 23.8 pg (27.0-31.0); Mean Corpuscular Volume 79.1 fL (78.0-98.0); Mean Platelet Volume 9.6 fL (7.4-10.4); Platelet Count 203 thou/uL (130-400); RBC Distribution Width 21.2 % (11.5-14.5); White Blood Cell (WBC) Count 13.1 thou/uL (4.8-10.8)
[2020-12-31] MEDS ORDERED: Ferrous Sulfate 325 MG TAB PO SCH (18:15)
[2020-12-31] MEDS ORDERED: Pravastatin Sodium 40 MG TAB PO SCH (21:00)
[2020-12-31] MEDS: Atorvastatin Calcium 20 MG TAB PO SCH (21:03)
[2020-12-31] MEDS: Senokot 8.6 MG TAB PO PRN (22:40)
[2020-12-31] MEDS: Melatonin 3 MG TAB PO PRN (22:40)
[2021-01-01] MEDS ORDERED: Metolazone 5 MG TAB PO SCH (09:00)
[2021-01-01 09:09] LABS: Hemoglobin 10.2 g/dL (14.0-18.0); Mean Corpuscular HGB CONC 29.3 g/dL (32.0-36.0); Mean Corpuscular Hemoglobin 23.7 pg (27.0-31.0); Mean Corpuscular Volume 80.9 fL (78.0-98.0); Mean Platelet Volume 10.3 fL (7.4-10.4); Platelet Count 190 thou/uL (130-400); RBC Distribution Width 23.9 % (11.5-14.5); Red Blood Cell (RBC) Count 4.32 mill/uL (4.70-6.10); White Blood Cell (WBC) Count 15.1 thou/uL (4.8-10.8)
[2021-01-01 09:21] LABS: Albumin 3.3 g/dL (3.4-4.8); Anion Gap 17 mmol/L (10-20); BUN (Urea Nitrogen) 63 mg/dL (8.4-25.7); BUN/Creatinine Ratio 25.71; Calc. Creatinine Clearance 34 mL/min (70-130); Calcium 8.9 mg/dL (7.8-10.44); Carbon Dioxide 30 mmol/L (23-31); Chloride 97 mmol/L (98-107); Glucose 146 mg/dL (83-110); Phosphorus 4.1 mg/dL (2.3-4.7); Potassium 4.2 mmol/L (3.5-5.1); Sodium 140 mmol/L (136-145)
[2021-01-01] MEDS: Ferrous Sulfate 325 MG TAB PO SCH ×2 (09:31→17:01)
[2021-01-01] MEDS: predniSONE 20 MG TAB PO SCH (09:31)
[2021-01-01] MEDS: Calcitriol 0.25 MCG CAP PO SCH (09:31)
[2021-01-01] MEDS: Magnesium Oxide 250 MG TAB PO SCH (09:31)
[2021-01-01] MEDS: Insulin Glargine 5 UNITS in Pre-Filled Syringe 1 EACH SC SCH ×2 (09:31→19:49)
[2021-01-01] MEDS: Clopidogrel Bisulfate 75 MG TAB PO SCH (09:31)
[2021-01-01] MEDS: Torsemide 100 MG TAB PO SCH (09:36)
[2021-01-01] MEDS: Insulin Regular 300 UNITS/3 ML VIAL SC PRN (17:01)
[2021-01-01] MEDS: Melatonin 3 MG TAB PO PRN (19:48)
[2021-01-01] MEDS: Atorvastatin Calcium 20 MG TAB PO SCH (19:50)
[2021-01-02] MEDS: Insulin Regular 300 UNITS/3 ML VIAL SC PRN (06:07)
[2021-01-02 06:23] LABS: Albumin 3.5 g/dL (3.4-4.8); Anion Gap 17 mmol/L (10-20); BUN (Urea Nitrogen) 80 mg/dL (8.4-25.7); BUN/Creatinine Ratio 28.47; Calc. Creatinine Clearance 29 mL/min (70-130); Calcium 9.9 mg/dL (7.8-10.44); Carbon Dioxide 31 mmol/L (23-31); Chloride 95 mmol/L (98-107); Glucose 166 mg/dL (83-110); Potassium 4.4 mmol/L (3.5-5.1); Sodium 139 mmol/L (136-145)
[2021-01-02] MEDS: Magnesium Oxide 250 MG TAB PO SCH (08:36)
[2021-01-02] MEDS: Clopidogrel Bisulfate 75 MG TAB PO SCH (08:36)
[2021-01-02] MEDS: predniSONE 20 MG TAB PO SCH (08:37)
[2021-01-02] MEDS: Ferrous Sulfate 325 MG TAB PO SCH ×2 (08:37→16:03)
[2021-01-02] MEDS: Calcitriol 0.25 MCG CAP PO SCH (08:37)
[2021-01-02] MEDS: Torsemide 100 MG TAB PO SCH (08:38)
[2021-01-02] MEDS: Insulin Glargine 5 UNITS in Pre-Filled Syringe 1 EACH SC SCH (09:59)
[2021-01-02 11:03] LABS: Hemoglobin 11.5 g/dL (14.0-18.0); Mean Corpuscular Hemoglobin 24.4 pg (27.0-31.0); Mean Corpuscular Volume 81.5 fL (78.0-98.0); Mean Platelet Volume 10.1 fL (7.4-10.4); Platelet Count 217 thou/uL (130-400); RBC Distribution Width 24.3 % (11.5-14.5); Red Blood Cell (RBC) Count 4.69 mill/uL (4.70-6.10)
[2021-01-02] MEDS ORDERED: Amoxicillin/Potassium Clav 875 MG TAB PO SCH (12:15)
[2021-01-02 15:38] LABS: M-Spike,% 5.2 % (Not Observed)
[2021-01-02] MEDS: Sodium Chloride 0.9% 1,000 ML IV SCH (18:30)
[2021-01-02] MEDS: Lantus 1000 UNITS/10 ML VIAL SC SCH (21:04)
[2021-01-02] MEDS: Atorvastatin Calcium 20 MG TAB PO SCH (21:04)
[2021-01-02] MEDS: Amoxicillin/Potassium Clav 875 MG TAB PO SCH (21:04)
[2021-01-03 05:04] LABS: Hemoglobin 9.8 g/dL (14.0-18.0); Mean Corpuscular HGB CONC 30.9 g/dL (32.0-36.0); Mean Corpuscular Hemoglobin 25.2 pg (27.0-31.0); Mean Corpuscular Volume 81.6 fL (78.0-98.0); Mean Platelet Volume 9.9 fL (7.4-10.4); Platelet Count 185 thou/uL (130-400); RBC Distribution Width 24.2 % (11.5-14.5); White Blood Cell (WBC) Count 16.2 thou/uL (4.8-10.8)
[2021-01-03 05:18] LABS: Anion Gap 16 mmol/L (10-20); BUN (Urea Nitrogen) 85 mg/dL (8.4-25.7); Calc. Creatinine Clearance 31 mL/min (70-130); Calcium 9.3 mg/dL (7.8-10.44); Carbon Dioxide 33 mmol/L (23-31); Chloride 92 mmol/L (98-107); Glucose 125 mg/dL (83-110); Potassium 4.1 mmol/L (3.5-5.1); Sodium 137 mmol/L (136-145)
[2021-01-03] MEDS: Clopidogrel Bisulfate 75 MG TAB PO SCH (08:53)
[2021-01-03] MEDS: Magnesium Oxide 250 MG TAB PO SCH (08:54)
[2021-01-03] MEDS: Calcitriol 0.25 MCG CAP PO SCH (08:54)
[2021-01-03] MEDS: Amoxicillin/Potassium Clav 875 MG TAB PO SCH ×2 (08:54→21:04)
[2021-01-03] MEDS: Lantus 1000 UNITS/10 ML VIAL SC SCH ×2 (08:54→20:30)
[2021-01-03] MEDS: Ferrous Sulfate 325 MG TAB PO SCH ×2 (08:54→18:00)
[2021-01-03] MEDS: EPOETIN ALFA-EPBX (ESRD) 2,000 UNIT/ML VIAL SC SCH (15:06)
[2021-01-03] MEDS: Sodium Chloride 0.9% 1,000 ML IV SCH (15:06)
[2021-01-03] MEDS: EPOETIN ALFA-EPBX (ESRD) 3,000 UNIT/ML VIAL SC SCH (15:06)
[2021-01-03] MEDS: Dextrose 50% Abboject 50 ML SYRINGE IVP PRN (20:31)
[2021-01-03] MEDS: Atorvastatin Calcium 20 MG TAB PO SCH (21:04)
[2021-01-04] MEDS: Dextrose 50% Abboject 50 ML SYRINGE IVP PRN (01:09)
[2021-01-04] MEDS ORDERED: Dextrose 5 %-0.45 % NaCl 1,000 ML IV SCH (03:45)
[2021-01-04 06:37] LABS: Hemoglobin 11.2 g/dL (14.0-18.0); Mean Corpuscular HGB CONC 29.3 g/dL (32.0-36.0); Mean Corpuscular Hemoglobin 24.3 pg (27.0-31.0); Mean Platelet Volume 10.3 fL (7.4-10.4); Platelet Count 190 thou/uL (130-400); RBC Distribution Width 24.8 % (11.5-14.5)
[2021-01-04 08:29] LABS: Albumin 3.6 g/dL (3.4-4.8); Anion Gap 16 mmol/L (10-20); BUN (Urea Nitrogen) 77 mg/dL (8.4-25.7); BUN/Creatinine Ratio 30.43; Calc. Creatinine Clearance 32 mL/min (70-130); Calcium 9.1 mg/dL (7.8-10.44); Carbon Dioxide 34 mmol/L (23-31); Chloride 92 mmol/L (98-107); Glucose 98 mg/dL (83-110); Phosphorus 4.1 mg/dL (2.3-4.7); Potassium 4.3 mmol/L (3.5-5.1); Sodium 138 mmol/L (136-145)
[2021-01-04] MEDS: Calcitriol 0.25 MCG CAP PO SCH (09:57)
[2021-01-04] MEDS: Magnesium Oxide 250 MG TAB PO SCH (09:57)
[2021-01-04] MEDS: Clopidogrel Bisulfate 75 MG TAB PO SCH (09:57)
[2021-01-04] MEDS: Ferrous Sulfate 325 MG TAB PO SCH ×2 (09:57→16:47)
[2021-01-04] MEDS: Amoxicillin/Potassium Clav 875 MG TAB PO SCH ×2 (09:58→20:10)
[2021-01-04] MEDS: Atorvastatin Calcium 20 MG TAB PO SCH (20:10)
[2021-01-04] MEDS: Melatonin 3 MG TAB PO PRN (23:37)
[2021-01-05 04:59] LABS: Hemoglobin 9.3 g/dL (14.0-18.0); Mean Corpuscular HGB CONC 27.8 g/dL (32.0-36.0); Mean Corpuscular Hemoglobin 23.1 pg (27.0-31.0); Mean Corpuscular Volume 82.9 fL (78.0-98.0); Platelet Count 197 thou/uL (130-400); Red Blood Cell (RBC) Count 4.02 mill/uL (4.70-6.10); White Blood Cell (WBC) Count 13.3 thou/uL (4.8-10.8)
[2021-01-05 05:19] LABS: Albumin 3.3 g/dL (3.4-4.8); Anion Gap 17 mmol/L (10-20); BUN (Urea Nitrogen) 74 mg/dL (8.4-25.7); BUN/Creatinine Ratio 29.13; Calc. Creatinine Clearance 32 mL/min (70-130); Calcium 8.7 mg/dL (7.8-10.44); Carbon Dioxide 31 mmol/L (23-31); Chloride 93 mmol/L (98-107); Glucose 107 mg/dL (83-110); Phosphorus 3.4 mg/dL (2.3-4.7); Potassium 4.2 mmol/L (3.5-5.1); Sodium 137 mmol/L (136-145)
[2021-01-05] MEDS: Ferrous Sulfate 325 MG TAB PO SCH ×2 (08:55→16:18)
[2021-01-05] MEDS: Calcitriol 0.25 MCG CAP PO SCH (08:56)
[2021-01-05] MEDS: Amoxicillin/Potassium Clav 875 MG TAB PO SCH (08:56)
[2021-01-05] MEDS: Magnesium Oxide 250 MG TAB PO SCH (08:56)
[2021-01-05] MEDS: Clopidogrel Bisulfate 75 MG TAB PO SCH (08:56)
[2021-01-05] MEDS: Senokot 8.6 MG TAB PO PRN (08:59)
[2021-01-05 15:28] VITALS: BP 105/58; TEMP 97.5
== END 2021-01-05 18:49 | DRG 673 ==
LOC: ERS 16:54 → CCU 18:31 → IMCU/EMU 22:45 → CCU 22:50 → 2SE 12-29 06:36
PROVIDERS: ADMIT Internal Medicine; ATTEND Internal Medicine
PROC: 0JH63XZ Insertion of Tunneled Vascular Access Device into Chest Subcutaneous Tissue and Fascia, Percutaneous Approach (ICD-10-PCS; principal; 2020-12-26)
PROC: 02HV33Z Insertion of Infusion Device into Superior Vena Cava, Percutaneous Approach (ICD-10-PCS; 2020-12-26)
PROC: B548ZZA Ultrasonography of Superior Vena Cava, Guidance (ICD-10-PCS; 2020-12-26)
PROC: 5A1D70Z Performance of Urinary Filtration, Intermittent, Less than 6 Hours Per Day (ICD-10-PCS; 2020-12-26)
DX: N17.0 Acute kidney failure with tubular necrosis (principal); J96.21 Acute and chronic respiratory failure with hypoxia; J18.9 Pneumonia, unspecified organism; I50.32 Chronic diastolic (congestive) heart failure; I13.0 Hypertensive heart and chronic kidney disease with heart failure and stage 1 through stage 4 chronic kidney disease, or unspecified chronic kidney disease; E87.2 Acidosis; J90 Pleural effusion, not elsewhere classified; E87.3 Alkalosis; J44.0 Chronic obstructive pulmonary disease with (acute) lower respiratory infection; I49.5 Sick sinus syndrome; Z20.822 Contact with and (suspected) exposure to COVID-19; J44.9 Chronic obstructive pulmonary disease, unspecified; E78.5 Hyperlipidemia, unspecified; E78.00 Pure hypercholesterolemia, unspecified; F41.9 Anxiety disorder, unspecified; F32.9 Major depressive disorder, single episode, unspecified; I25.10 Atherosclerotic heart disease of native coronary artery without angina pectoris; I73.9 Peripheral vascular disease, unspecified; E11.51 Type 2 diabetes mellitus with diabetic peripheral angiopathy without gangrene; N25.81 Secondary hyperparathyroidism of renal origin; N18.31 Chronic kidney disease, stage 3a; E11.22 Type 2 diabetes mellitus with diabetic chronic kidney disease; E87.5 Hyperkalemia; I48.0 Paroxysmal atrial fibrillation; D63.1 Anemia in chronic kidney disease; D50.9 Iron deficiency anemia, unspecified; K21.9 Gastro-esophageal reflux disease without esophagitis; I08.1 Rheumatic disorders of both mitral and tricuspid valves; Z85.46 Personal history of malignant neoplasm of prostate; Z88.6 Allergy status to analgesic agent; Z87.891 Personal history of nicotine dependence; Z90.49 Acquired absence of other specified parts of digestive tract; Z86.711 Personal history of pulmonary embolism; Z98.890 Other specified postprocedural states; Z99.81 Dependence on supplemental oxygen; Z79.899 Other long term (current) drug therapy; Z79.52 Long term (current) use of systemic steroids; Z79.84 Long term (current) use of oral hypoglycemic drugs
CPT/HCPCS: 36415; 36416; 36600; 51702; 70450; 71045; 74018; 74176; 76770; 80048; 80053; 80069; 81001; 82040; 82306; 82553; 82570; 82728; 82805; 83540; 83550; 83605; 83690; 83735; 83883; 83970; 84100; 84155; 84156; 84165; 84166; 84300; 84443; 84484; 84540; 85025; 85027; 86038; 86160; 86225; 86334; 86335; 86704; 86706; 86803; 87086; 87340; 90935; 93005; 93010; 93306; 93970; 94150; 94640; 94660; 96365; 96366; 96375; 99292; C1752; G0257; J1265; J1642; J1644; J1815; J1940; J2250; J2405; J2704; J2916; J2920; J3010; J3475; J3490; J7070; J7512; J7620; P9047; Q5105; S0020; U0002

== ENCOUNTER 2021-02-19 22:25 | Inpatient (IN) | payer MEDICARE ==
[~2021-02-19 22:25] MED LIST: Iopamidol-370 76% 500 ML 1 ML ONE
[2021-02-19 23:30] LABS: ALT (SGPT) 11 U/L (8-55); AST (SGOT) 20 U/L (5-34); Albumin 3.2 g/dL (3.4-4.8); Alkaline Phosphatase 69 U/L (40-110); Anion Gap 13 mmol/L (10-20); BUN (Urea Nitrogen) 22 mg/dL (8.4-25.7); Bilirubin, Total 0.5 mg/dL (0.2-1.2); Calc. Creatinine Clearance 0 mL/min (70-130); Calcium 8.7 mg/dL (7.8-10.44); Carbon Dioxide 29 mmol/L (23-31); Chloride 98 mmol/L (98-107); Globulin 3.5 g/dL (2.4-3.5); Glucose 113 mg/dL (83-110); Potassium 3.3 mmol/L (3.5-5.1); Protein, Total 6.7 g/dL (5.8-8.1); Sodium 137 mmol/L (136-145)
[2021-02-19 23:32] LABS: #Eosinphils 0.1 thou/uL (0.0-0.7); #Lymphocytes 1.9 thou/uL (1.20-3.40); #Monocytes 0.9 thou/uL (0.11-0.59); #Neutrophils 5.4 thou/uL (1.40-6.50); %Basophils 0.4 % (0.0-1.0); %Eosinophils 0.8 % (0.0-10.0); %Lymphocytes 23.1 % (21.0-51.0); %Monocytes 10.9 % (0.0-10.0); %Neutrophils 64.7 % (42.0-75.0); Mean Corpuscular HGB CONC 29.5 g/dL (32.0-36.0); Mean Corpuscular Hemoglobin 26.9 pg (27.0-31.0); Mean Corpuscular Volume 91.2 fL (78.0-98.0); Mean Platelet Volume 7.3 fL (7.4-10.4); Platelet Count 266 thou/uL (130-400); RBC Distribution Width 17.5 % (11.5-14.5); Red Blood Cell (RBC) Count 3.34 mill/uL (4.70-6.10); White Blood Cell (WBC) Count 8.3 thou/uL (4.8-10.8)
[2021-02-19] MEDS ORDERED: Cefepime 2 GM VIAL ONE (23:52)
[2021-02-20] MEDS ORDERED: Vancomycin 1 GM/200 ML BAG ONE (00:03)
[2021-02-20] MEDS ORDERED: Dextrose 5% in Water 1,000 ML IV PRN (00:34)
[2021-02-20] MEDS ORDERED: Senokot S 8.6-50 MG TAB PO PRN (00:34)
[2021-02-20] MEDS ORDERED: Bisacodyl 10 MG SUPP PR PRN (00:34)
[2021-02-20] MEDS ORDERED: Calcium Carbonate 500 MG ChewTAB PO PRN (00:34)
[2021-02-20] MEDS ORDERED: Guaifenesin DM 100-10/5 ML UDCUP PO PRN (00:34)
[2021-02-20] MEDS ORDERED: HumaLOG 300 UNITS/3 ML VIAL SC PRN ×2 (00:34)
[2021-02-20] MEDS ORDERED: Loperamide HCl 2 MG CAP PO PRN (00:34)
[2021-02-20] MEDS ORDERED: Dextrose 50% Abboject 50 ML SYRINGE SLOW IVP PRN (00:34)
[2021-02-20] MEDS ORDERED: HYDROcodone/Acetaminophen 5/325 mg Tablet PO PRN (00:34)
[2021-02-20] MEDS ORDERED: Acetaminophen 325 MG TAB PO PRN (00:34)
[2021-02-20 01:51] LABS: #Lymphocytes 0.5 thou/uL (1.20-3.40); #Monocytes 0.1 thou/uL (0.11-0.59); #Neutrophils 8.1 thou/uL (1.40-6.50); %Eosinophils 0.1 % (0.0-10.0); %Lymphocytes 5.2 % (21.0-51.0); %Monocytes 1.6 % (0.0-10.0); %Neutrophils 93.1 % (42.0-75.0); Hemoglobin 9.2 g/dL (14.0-18.0); Mean Corpuscular HGB CONC 29.7 g/dL (32.0-36.0); Mean Corpuscular Hemoglobin 27.3 pg (27.0-31.0); Mean Corpuscular Volume 91.8 fL (78.0-98.0); Platelet Count 255 thou/uL (130-400); RBC Distribution Width 17.3 % (11.5-14.5); Red Blood Cell (RBC) Count 3.37 mill/uL (4.70-6.10); White Blood Cell (WBC) Count 8.7 thou/uL (4.8-10.8)
[2021-02-20 01:57] LABS: SARS-CoV-2 NAA Rapid Test Not Detected (NotDetected)
[2021-02-20 02:08] LABS: Lactic Acid 2.3 mmol/L (0.5-2.2)
[2021-02-20 02:24] LABS: Troponin I 0.344 ng/mL (< 0.028)
[2021-02-20 02:38] LABS: Anion Gap 14 mmol/L (10-20); BUN (Urea Nitrogen) 24 mg/dL (8.4-25.7); Calc. Creatinine Clearance 0 mL/min (70-130); Carbon Dioxide 28 mmol/L (23-31); Chloride 97 mmol/L (98-107); Glucose 146 mg/dL (83-110); Sodium 136 mmol/L (136-145)
[2021-02-20 06:04] VITALS: BMI 23.7
[2021-02-20] MEDS ORDERED: Heparin 10,000 UNITS/ 10 ML VIAL ONE ×2 (07:21→09:30)
[2021-02-20 07:26] LABS: Troponin I 0.345 ng/mL (< 0.028)
[2021-02-20] MEDS ORDERED: Potassium Chloride 20 MEQ TAB PO SCH (08:54)
[2021-02-20] MEDS ORDERED: Potassium Chloride 20 MEQ TAB ONE (09:29)
[2021-02-20] MEDS: Doxycycline 100 MG CAP PO SCH ×2 (09:31→21:18)
[2021-02-20] MEDS: Heparin 5,000 UNITS/ML VIAL SC SCH ×3 (09:31→21:18)
[2021-02-20] MEDS ORDERED: Clopidogrel Bisulfate 300 MG TAB PO SCH (14:00)
[2021-02-20] MEDS: Nitroglycerin 2% Ointment 1 INCH/1 GM Packet TOP SCH ×2 (15:07→21:18)
[2021-02-20] MEDS: Cefepime 0.5 GM in Sodium Chloride 0.9% 100 ML IVPB SCH (21:18)
[2021-02-21] MEDS ORDERED: Melatonin 3 MG TAB PO SCH (01:30)
[2021-02-21 04:47] LABS: #Monocytes 0.8 thou/uL (0.11-0.59); #Neutrophils 6.2 thou/uL (1.40-6.50); %Basophils 0.2 % (0.0-1.0); %Eosinophils 0.3 % (0.0-10.0); %Monocytes 9.6 % (0.0-10.0); Hemoglobin 9.1 g/dL (14.0-18.0); Mean Corpuscular HGB CONC 29.7 g/dL (32.0-36.0); Mean Corpuscular Hemoglobin 27.3 pg (27.0-31.0); Mean Corpuscular Volume 91.9 fL (78.0-98.0); Mean Platelet Volume 7.7 fL (7.4-10.4); Platelet Count 271 thou/uL (130-400); RBC Distribution Width 17.5 % (11.5-14.5); Red Blood Cell (RBC) Count 3.35 mill/uL (4.70-6.10); White Blood Cell (WBC) Count 7.9 thou/uL (4.8-10.8)
[2021-02-21 05:07] LABS: Anion Gap 14 mmol/L (10-20); BUN (Urea Nitrogen) 21 mg/dL (8.4-25.7); Calc. Creatinine Clearance 20 mL/min (70-130); Carbon Dioxide 27 mmol/L (23-31); Chloride 100 mmol/L (98-107); Potassium 3.7 mmol/L (3.5-5.1); Sodium 137 mmol/L (136-145)
[2021-02-21 05:08] LABS: Albumin 3.2 g/dL (3.4-4.8); BUN/Creatinine Ratio 6.02; Calcium 8.7 mg/dL (7.8-10.44); Glucose 152 mg/dL (83-110); Phosphorus 2.4 mg/dL (2.3-4.7)
[2021-02-21] MEDS: Nitroglycerin 2% Ointment 1 INCH/1 GM Packet TOP SCH ×3 (05:34→21:32)
[2021-02-21] MEDS: Doxycycline 100 MG CAP PO SCH ×2 (08:44→20:51)
[2021-02-21] MEDS: Clopidogrel Bisulfate 75 MG TAB PO SCH (08:44)
[2021-02-21] MEDS: Heparin 5,000 UNITS/ML VIAL SC SCH ×3 (08:44→20:51)
[2021-02-21] MEDS ORDERED: Torsemide 20 MG TAB PO SCH (10:15)
[2021-02-21] MEDS ORDERED: Spironolactone 25 MG TAB PO SCH (10:15)
[2021-02-21] MEDS: Atorvastatin Calcium 10 MG TAB PO SCH (20:51)
[2021-02-21] MEDS: Melatonin 3 MG TAB PO SCH (20:51)
[2021-02-21] MEDS: Zolpidem Tartrate 5 MG TAB PO PRN (20:51)
[2021-02-21] MEDS: Cefepime 0.5 GM in Sodium Chloride 0.9% 100 ML IVPB SCH (21:31)
[2021-02-22 05:07] LABS: #Eosinphils 0.1 thou/uL (0.0-0.7); #Lymphocytes 1.1 thou/uL (1.20-3.40); #Monocytes 1.2 thou/uL (0.11-0.59); #Neutrophils 7.4 thou/uL (1.40-6.50); %Basophils 0.4 % (0.0-1.0); %Eosinophils 0.8 % (0.0-10.0); %Neutrophils 75.9 % (42.0-75.0); Hemoglobin 9.5 g/dL (14.0-18.0); Mean Corpuscular HGB CONC 29.8 g/dL (32.0-36.0); Mean Corpuscular Hemoglobin 27.5 pg (27.0-31.0); Mean Corpuscular Volume 92.4 fL (78.0-98.0); Mean Platelet Volume 7.3 fL (7.4-10.4); Platelet Count 299 thou/uL (130-400); RBC Distribution Width 17.7 % (11.5-14.5); Red Blood Cell (RBC) Count 3.46 mill/uL (4.70-6.10); White Blood Cell (WBC) Count 9.8 thou/uL (4.8-10.8)
[2021-02-22] MEDS: Nitroglycerin 2% Ointment 1 INCH/1 GM Packet TOP SCH ×3 (05:19→21:28)
[2021-02-22 05:21] LABS: Anion Gap 16 mmol/L (10-20); BUN (Urea Nitrogen) 31 mg/dL (8.4-25.7); Calc. Creatinine Clearance 16 mL/min (70-130); Calcium 9.3 mg/dL (7.8-10.44); Carbon Dioxide 23 mmol/L (23-31); Chloride 99 mmol/L (98-107); Glucose 115 mg/dL (83-110); Potassium 4.1 mmol/L (3.5-5.1); Sodium 134 mmol/L (136-145)
[2021-02-22] MEDS ORDERED: Heparin 10,000 UNITS/ 10 ML VIAL ONE (11:06)
[2021-02-22] MEDS: Doxycycline 100 MG CAP PO SCH ×2 (12:40→21:27)
[2021-02-22] MEDS: Torsemide 20 MG TAB PO SCH (12:41)
[2021-02-22] MEDS: Spironolactone 25 MG TAB PO SCH (12:41)
[2021-02-22] MEDS: Clopidogrel Bisulfate 75 MG TAB PO SCH (12:42)
[2021-02-22] MEDS: Heparin 5,000 UNITS/ML VIAL SC SCH ×3 (12:43→21:28)
[2021-02-22] MEDS: Atorvastatin Calcium 10 MG TAB PO SCH (21:27)
[2021-02-22] MEDS: Zolpidem Tartrate 5 MG TAB PO PRN (21:27)
[2021-02-22] MEDS: Cefepime 0.5 GM in Sodium Chloride 0.9% 100 ML IVPB SCH (21:28)
[2021-02-22] MEDS: Melatonin 3 MG TAB PO SCH (21:28)
[2021-02-23] MEDS: Nitroglycerin 2% Ointment 1 INCH/1 GM Packet TOP SCH ×3 (05:09→21:24)
[2021-02-23] MEDS: Doxycycline 100 MG CAP PO SCH ×2 (09:07→21:23)
[2021-02-23] MEDS: Spironolactone 25 MG TAB PO SCH (09:07)
[2021-02-23] MEDS: Clopidogrel Bisulfate 75 MG TAB PO SCH (09:07)
[2021-02-23] MEDS: Heparin 5,000 UNITS/ML VIAL SC SCH ×3 (09:07→21:22)
[2021-02-23] MEDS: Torsemide 20 MG TAB PO SCH (09:07)
[2021-02-23] MEDS: Zolpidem Tartrate 5 MG TAB PO PRN (21:23)
[2021-02-23] MEDS: Cefepime 0.5 GM in Sodium Chloride 0.9% 100 ML IVPB SCH (21:23)
[2021-02-23] MEDS: Melatonin 3 MG TAB PO SCH (21:23)
[2021-02-23] MEDS: Atorvastatin Calcium 10 MG TAB PO SCH (21:23)
[2021-02-24 04:56] LABS: Anion Gap 17 mmol/L (10-20); BUN (Urea Nitrogen) 26 mg/dL (8.4-25.7); Calc. Creatinine Clearance 17 mL/min (70-130); Calcium 8.9 mg/dL (7.8-10.44); Carbon Dioxide 25 mmol/L (23-31); Chloride 99 mmol/L (98-107); Glucose 106 mg/dL (83-110); Potassium 3.8 mmol/L (3.5-5.1); Sodium 137 mmol/L (136-145)
[2021-02-24 05:11] LABS: #Eosinphils 0.1 thou/uL (0.0-0.7); #Lymphocytes 1.1 thou/uL (1.20-3.40); #Monocytes 1.1 thou/uL (0.11-0.59); %Basophils 0.5 % (0.0-1.0); %Lymphocytes 13.3 % (21.0-51.0); %Monocytes 13.2 % (0.0-10.0); %Neutrophils 72.1 % (42.0-75.0); Hemoglobin 9.6 g/dL (14.0-18.0); Mean Corpuscular HGB CONC 29.5 g/dL (32.0-36.0); Mean Corpuscular Volume 91.4 fL (78.0-98.0); Mean Platelet Volume 7.3 fL (7.4-10.4); Platelet Count 284 thou/uL (130-400); Red Blood Cell (RBC) Count 3.55 mill/uL (4.70-6.10); White Blood Cell (WBC) Count 8.3 thou/uL (4.8-10.8)
[2021-02-24] MEDS: Nitroglycerin 2% Ointment 1 INCH/1 GM Packet TOP SCH ×2 (05:54→14:22)
[2021-02-24] MEDS: Spironolactone 25 MG TAB PO SCH (09:26)
[2021-02-24] MEDS: Doxycycline 100 MG CAP PO SCH ×2 (09:26→21:23)
[2021-02-24] MEDS: Clopidogrel Bisulfate 75 MG TAB PO SCH (09:26)
[2021-02-24] MEDS: Torsemide 20 MG TAB PO SCH (09:26)
[2021-02-24] MEDS: Heparin 5,000 UNITS/ML VIAL SC SCH ×3 (09:27→21:23)
[2021-02-24] MEDS: Cefepime 0.5 GM in Sodium Chloride 0.9% 100 ML IVPB SCH (21:22)
[2021-02-24] MEDS: Zolpidem Tartrate 5 MG TAB PO PRN (21:23)
[2021-02-24] MEDS: Atorvastatin Calcium 10 MG TAB PO SCH (21:23)
[2021-02-24] MEDS: Melatonin 3 MG TAB PO SCH (21:23)
[2021-02-25 03:59] VITALS: TEMP 97.6
[2021-02-25] MEDS ORDERED: Heparin 10,000 UNITS/ 10 ML VIAL ONE (08:42)
[2021-02-25] MEDS: Heparin 5,000 UNITS/ML VIAL SC SCH (10:21)
[2021-02-25 11:17] VITALS: BP 115/72
[2021-02-25] MEDS: Clopidogrel Bisulfate 75 MG TAB PO SCH (11:20)
[2021-02-25] MEDS: Torsemide 20 MG TAB PO SCH (11:20)
[2021-02-25] MEDS: Spironolactone 25 MG TAB PO SCH (11:20)
[2021-02-25] MEDS: Doxycycline 100 MG CAP PO SCH (11:21)
[2021-02-25] MEDS ORDERED: Melatonin 3 MG TAB PO SCH (21:00)
== END 2021-02-25 15:00 | disposition home health service (06) | DRG 871 ==
LOC: ERS 22:25 → ERHOLD 02-20 00:25 → 2NO 02-20 14:34
PROVIDERS: ADMIT Internal Medicine; ATTEND Internal Medicine
PROC: 5A1D70Z Performance of Urinary Filtration, Intermittent, Less than 6 Hours Per Day (ICD-10-PCS; principal; 2021-02-20)
DX: A41.9 Sepsis, unspecified organism (principal); J69.0 Pneumonitis due to inhalation of food and vomit; N18.6 End stage renal disease; I21.A1 Myocardial infarction type 2; I50.43 Acute on chronic combined systolic (congestive) and diastolic (congestive) heart failure; J96.21 Acute and chronic respiratory failure with hypoxia; E87.2 Acidosis; I13.2 Hypertensive heart and chronic kidney disease with heart failure and with stage 5 chronic kidney disease, or end stage renal disease; N17.9 Acute kidney failure, unspecified; I38 Endocarditis, valve unspecified; Z20.822 Contact with and (suspected) exposure to COVID-19; I48.0 Paroxysmal atrial fibrillation; E11.22 Type 2 diabetes mellitus with diabetic chronic kidney disease; J44.9 Chronic obstructive pulmonary disease, unspecified; E78.00 Pure hypercholesterolemia, unspecified; F41.9 Anxiety disorder, unspecified; F32.9 Major depressive disorder, single episode, unspecified; D63.1 Anemia in chronic kidney disease; I25.10 Atherosclerotic heart disease of native coronary artery without angina pectoris; K21.9 Gastro-esophageal reflux disease without esophagitis; E78.2 Mixed hyperlipidemia; E11.51 Type 2 diabetes mellitus with diabetic peripheral angiopathy without gangrene; E87.6 Hypokalemia; T50.1X5A Adverse effect of loop [high-ceiling] diuretics, initial encounter; I87.8 Other specified disorders of veins; Z99.2 Dependence on renal dialysis; Z95.5 Presence of coronary angioplasty implant and graft; Z90.49 Acquired absence of other specified parts of digestive tract; Z87.891 Personal history of nicotine dependence; Z88.8 Allergy status to other drugs, medicaments and biological substances; Z79.899 Other long term (current) drug therapy; Z79.02 Long term (current) use of antithrombotics/antiplatelets; Z79.51 Long term (current) use of inhaled steroids; Z79.4 Long term (current) use of insulin; Z85.46 Personal history of malignant neoplasm of prostate; Z92.3 Personal history of irradiation
CPT/HCPCS: 36415; 36416; 71045; 71275; 80048; 80053; 80069; 82553; 83605; 83735; 83880; 84145; 84484; 85025; 87040; 90935; 93005; 94640; 96365; 96367; G0257; J0692; J1644; J1815; J3370; J3490; J7620; Q9967; U0002

== ENCOUNTER 2021-03-06 21:23 | Inpatient (IN) | payer MEDICARE ==
[2021-03-06 22:51] LABS: #Eosinphils 0.1 thou/uL (0.0-0.7); #Lymphocytes 0.8 thou/uL (1.20-3.40); #Monocytes 0.8 thou/uL (0.11-0.59); #Neutrophils 13.1 thou/uL (1.40-6.50); %Basophils 0.3 % (0.0-1.0); %Eosinophils 0.5 % (0.0-10.0); %Monocytes 5.6 % (0.0-10.0); %Neutrophils 88.6 % (42.0-75.0); Hemoglobin 10.2 g/dL (14.0-18.0); Mean Corpuscular HGB CONC 31.6 g/dL (32.0-36.0); Mean Corpuscular Hemoglobin 28.7 pg (27.0-31.0); Mean Corpuscular Volume 90.7 fL (78.0-98.0); Mean Platelet Volume 7.8 fL (7.4-10.4); Platelet Count 226 thou/uL (130-400); RBC Distribution Width 16.7 % (11.5-14.5); Red Blood Cell (RBC) Count 3.56 mill/uL (4.70-6.10); White Blood Cell (WBC) Count 14.8 thou/uL (4.8-10.8)
[2021-03-06 23:14] LABS: ALT (SGPT) 15 U/L (8-55); AST (SGOT) 24 U/L (5-34); Albumin 3.5 g/dL (3.4-4.8); Alkaline Phosphatase 67 U/L (40-110); Anion Gap 11 mmol/L (10-20); BUN (Urea Nitrogen) 11 mg/dL (8.4-25.7); Bilirubin, Total 0.5 mg/dL (0.2-1.2); Calc. Creatinine Clearance 0 mL/min (70-130); Calcium 8.4 mg/dL (7.8-10.44); Carbon Dioxide 31 mmol/L (23-31); Chloride 99 mmol/L (98-107); Globulin 3.5 g/dL (2.4-3.5); Glucose 146 mg/dL (83-110); Sodium 137 mmol/L (136-145)
[2021-03-06] MEDS ORDERED: Vancomycin 1 GM/200 ML BAG ONE (23:19)
[2021-03-06] MEDS ORDERED: Cefepime 2 GM VIAL ONE (23:19)
[2021-03-06 23:21] LABS: Critical Call Chem Troponin I RESULT DECREASING
[2021-03-07 00:35] LABS: CKMB 5.3 ng/mL (0-6.6)
[2021-03-07] MEDS ORDERED: Vancomycin 1 GM/200 ML BAG ONE (01:19)
[2021-03-07 01:53] LABS: Lactic Acid 3.1 mmol/L (0.5-2.2)
[2021-03-07] MEDS ORDERED: Ondansetron PF 4 MG/2 ML Vial IVP PRN (02:05)
[2021-03-07] MEDS ORDERED: HumaLOG 300 UNITS/3 ML VIAL SC PRN ×4 (02:05→04:01)
[2021-03-07] MEDS ORDERED: Dextrose 5% in Water 1,000 ML IV PRN (02:05)
[2021-03-07] MEDS ORDERED: Acetaminophen 325 MG TAB PO PRN (02:05)
[2021-03-07 02:07] LABS: SARS-CoV-2 NAA Rapid Test Not Detected (NotDetected)
[2021-03-07] MEDS ORDERED: Pharmacy to Dose : CEFEPIME IVPB PRN (02:13)
[2021-03-07 04:33] LABS: #Eosinphils 0.1 thou/uL (0.0-0.7); #Lymphocytes 0.8 thou/uL (1.20-3.40); #Monocytes 0.6 thou/uL (0.11-0.59); #Neutrophils 7.2 thou/uL (1.40-6.50); %Basophils 0.2 % (0.0-1.0); %Lymphocytes 9.5 % (21.0-51.0); %Monocytes 6.6 % (0.0-10.0); %Neutrophils 82.7 % (42.0-75.0); Hemoglobin 9.9 g/dL (14.0-18.0); Mean Corpuscular HGB CONC 31.5 g/dL (32.0-36.0); Mean Corpuscular Hemoglobin 28.7 pg (27.0-31.0); Mean Platelet Volume 7.8 fL (7.4-10.4); Platelet Count 210 thou/uL (130-400); Red Blood Cell (RBC) Count 3.46 mill/uL (4.70-6.10); White Blood Cell (WBC) Count 8.7 thou/uL (4.8-10.8)
[2021-03-07 04:57] LABS: Anion Gap 12 mmol/L (10-20); BUN (Urea Nitrogen) 14 mg/dL (8.4-25.7); Calc. Creatinine Clearance 29 mL/min (70-130); Calcium 8.6 mg/dL (7.8-10.44); Carbon Dioxide 30 mmol/L (23-31); Chloride 97 mmol/L (98-107); Glucose 112 mg/dL (83-110); Potassium 3.6 mmol/L (3.5-5.1); Sodium 135 mmol/L (136-145)
[2021-03-07] MEDS ORDERED: Vancomycin 1 GM in Premix Bag 1 BAG IVPB SCH (05:15)
[2021-03-07] MEDS ORDERED: Vancomycin HCl 1.25 GM in Sodium Chloride 0.9% 250 ML 250 ML IVPB SCH (05:15)
[2021-03-07] MEDS ORDERED: Vancomycin HCl 500 MG in Sodium Chloride 0.9% 100 ML IVPB SCH (05:15)
[2021-03-07] MEDS ORDERED: Vancomycin HCl 750 MG in Sodium Chloride 0.9% 250 ML 250 ML IVPB SCH (05:15)
[2021-03-07] MEDS ORDERED: HOLD VANCOMYCIN FOR LEVEL >20 FS SCH (05:15)
[2021-03-07] MEDS: Clopidogrel Bisulfate 75 MG TAB PO SCH (09:13)
[2021-03-07 10:36] LABS: Troponin I 0.386 ng/mL (< 0.028)
[2021-03-07 17:34] LABS: Glucose 100 mg/dL (83-110)
[2021-03-07] MEDS: Mometasone 200 MCG/Formoterol 5 MCG 120 PUFF INHALER INH SCH (18:27)
[2021-03-07 20:34] LABS: Bilirubin Negative (Negative); Blood, Urine Negative (Negative); Clarity Extra Turbid (Clear); Glucose, Urine (Dipstick) Normal (Negative); Ketone, Urine 10 mg/dL (Negative); Leukocyte Negative Leu/uL (Negative); Nitrite Negative (Negative); Protein, Urine (Dipstick) 200 mg/dL (Neg-Trace); RBC/HPF 0-3 HPF (0-3); Specific Gravity, Urine 1.025 (1.002-1.036); Squamous Epithelial 0-3 HPF (0-3); Urobilinogen Normal mg/dL (Less than 2); pH, Urine 5.5 (5.0-9.0)
[2021-03-07 20:44] LABS: Bacteria/HPF 1+ HPF (None Seen); Urine Culture Reflex Yes Yes
[2021-03-07] MEDS: Cefepime 0.5 GM, Admixture Fee 1 EACH in Sodium Chloride 0.9% 100 ML IVPB SCH (20:58)
[2021-03-07] MEDS: Dextrose 50% Abboject 50 ML SYRINGE SLOW IVP PRN (21:18)
[2021-03-07 22:24] LABS: Glucose 156 mg/dL (83-110)
[2021-03-07 23:37] LABS: Glucose 132 mg/dL (83-110)
[2021-03-08 03:46] LABS: Vancomycin, Random 18.9 ug/mL (See Comment)
[2021-03-08 03:49] LABS: Anion Gap 13 mmol/L (10-20); BUN (Urea Nitrogen) 24 mg/dL (8.4-25.7); Calc. Creatinine Clearance 20 mL/min (70-130); Calcium 8.8 mg/dL (7.8-10.44); Carbon Dioxide 27 mmol/L (23-31); Chloride 99 mmol/L (98-107); Glucose 92 mg/dL (83-110); Magnesium 1.7 mg/dL (1.6-2.6); Potassium 3.5 mmol/L (3.5-5.1); Sodium 135 mmol/L (136-145)
[2021-03-08 03:51] LABS: #Eosinphils 0.2 thou/uL (0.0-0.7); #Lymphocytes 0.8 thou/uL (1.20-3.40); #Monocytes 0.7 thou/uL (0.11-0.59); #Neutrophils 5.4 thou/uL (1.40-6.50); %Basophils 0.5 % (0.0-1.0); %Eosinophils 2.3 % (0.0-10.0); %Lymphocytes 11.2 % (21.0-51.0); %Monocytes 10.1 % (0.0-10.0); %Neutrophils 75.9 % (42.0-75.0); Mean Corpuscular HGB CONC 31.1 g/dL (32.0-36.0); Mean Corpuscular Hemoglobin 28.1 pg (27.0-31.0); Mean Corpuscular Volume 90.3 fL (78.0-98.0); Mean Platelet Volume 7.9 fL (7.4-10.4); Platelet Count 219 thou/uL (130-400); RBC Distribution Width 16.8 % (11.5-14.5); Red Blood Cell (RBC) Count 3.21 mill/uL (4.70-6.10); White Blood Cell (WBC) Count 7.1 thou/uL (4.8-10.8)
[2021-03-08 07:19] LABS: Glucose 89 mg/dL (83-110)
[2021-03-08] MEDS: Mometasone 200 MCG/Formoterol 5 MCG 120 PUFF INHALER INH SCH ×2 (07:57→19:49)
[2021-03-08] MEDS: Heparin 5,000 UNITS/ML VIAL SC SCH ×3 (08:52→21:01)
[2021-03-08] MEDS: Clopidogrel Bisulfate 75 MG TAB PO SCH (08:52)
[2021-03-08] MEDS ORDERED: Vancomycin HCl 500 MG in Sodium Chloride 0.9% 100 ML IVPB SCH (09:00)
[2021-03-08] MEDS ORDERED: Heparin 10,000 UNITS/ 10 ML VIAL ONE (12:21)
[2021-03-08] MEDS: Cefepime 0.5 GM, Admixture Fee 1 EACH in Sodium Chloride 0.9% 100 ML IVPB SCH (20:52)
[2021-03-08] MEDS ORDERED: Zolpidem Tartrate 5 MG TAB PO SCH ×3 (22:00)
[2021-03-09 03:49] LABS: #Eosinphils 0.1 thou/uL (0.0-0.7); #Lymphocytes 0.8 thou/uL (1.20-3.40); #Monocytes 0.6 thou/uL (0.11-0.59); #Neutrophils 5.5 thou/uL (1.40-6.50); %Basophils 0.3 % (0.0-1.0); %Lymphocytes 11.5 % (21.0-51.0); %Monocytes 8.9 % (0.0-10.0); %Neutrophils 77.3 % (42.0-75.0); Hemoglobin 9.5 g/dL (14.0-18.0); Mean Corpuscular HGB CONC 31.2 g/dL (32.0-36.0); Mean Corpuscular Hemoglobin 28.3 pg (27.0-31.0); Mean Corpuscular Volume 90.8 fL (78.0-98.0); Mean Platelet Volume 7.7 fL (7.4-10.4); Platelet Count 225 thou/uL (130-400); RBC Distribution Width 16.8 % (11.5-14.5); Red Blood Cell (RBC) Count 3.33 mill/uL (4.70-6.10); White Blood Cell (WBC) Count 7.1 thou/uL (4.8-10.8)
[2021-03-09 04:11] LABS: Anion Gap 10 mmol/L (10-20); BUN (Urea Nitrogen) 17 mg/dL (8.4-25.7); Calc. Creatinine Clearance 25 mL/min (70-130); Calcium 8.7 mg/dL (7.8-10.44); Carbon Dioxide 29 mmol/L (23-31); Chloride 101 mmol/L (98-107); Glucose 102 mg/dL (83-110); Magnesium 1.8 mg/dL (1.6-2.6); Potassium 3.7 mmol/L (3.5-5.1); Sodium 136 mmol/L (136-145)
[2021-03-09 04:13] LABS: Vancomycin, Random 16.4 ug/mL (See Comment)
[2021-03-09] MEDS: Mometasone 200 MCG/Formoterol 5 MCG 120 PUFF INHALER INH SCH ×2 (07:29→19:19)
[2021-03-09] MEDS ORDERED: Vancomycin HCl 500 MG in Sodium Chloride 0.9% 100 ML IVPB SCH (09:00)
[2021-03-09] MEDS: Heparin 5,000 UNITS/ML VIAL SC SCH ×3 (09:18→21:00)
[2021-03-09] MEDS: Clopidogrel Bisulfate 75 MG TAB PO SCH (09:18)
[2021-03-09] MEDS ORDERED: Furosemide 20 MG/2 ML VIAL SLOW IVP SCH (17:30)
[2021-03-09] MEDS: Cefepime 0.5 GM, Admixture Fee 1 EACH in Sodium Chloride 0.9% 100 ML IVPB SCH (20:59)
[2021-03-09] MEDS: Zolpidem Tartrate 5 MG TAB PO SCH (20:59)
[2021-03-10] MEDS: Mometasone 200 MCG/Formoterol 5 MCG 120 PUFF INHALER INH SCH ×2 (08:00→18:47)
[2021-03-10] MEDS: Heparin 5,000 UNITS/ML VIAL SC SCH ×3 (09:45→21:34)
[2021-03-10] MEDS: Clopidogrel Bisulfate 75 MG TAB PO SCH (09:45)
[2021-03-10 10:22] LABS: Anion Gap 14 mmol/L (10-20); BUN (Urea Nitrogen) 30 mg/dL (8.4-25.7); Calc. Creatinine Clearance 16 mL/min (70-130); Calcium 8.8 mg/dL (7.8-10.44); Carbon Dioxide 27 mmol/L (23-31); Chloride 101 mmol/L (98-107); Glucose 154 mg/dL (83-110); Potassium 3.7 mmol/L (3.5-5.1); Sodium 138 mmol/L (136-145)
[2021-03-10] MEDS: Sodium Chloride 0.65% Nasal 44 ML BOT EA NARE PRN (16:07)
[2021-03-10] MEDS: Cefepime 0.5 GM, Admixture Fee 1 EACH in Sodium Chloride 0.9% 100 ML IVPB SCH (19:51)
[2021-03-10] MEDS: Zolpidem Tartrate 5 MG TAB PO SCH (21:34)
[2021-03-11 06:51] LABS: Hemoglobin 9.5 g/dL (14.0-18.0); Mean Corpuscular HGB CONC 31.3 g/dL (32.0-36.0); Mean Corpuscular Hemoglobin 28.4 pg (27.0-31.0); Mean Corpuscular Volume 90.9 fL (78.0-98.0); Mean Platelet Volume 7.4 fL (7.4-10.4); Platelet Count 209 thou/uL (130-400); RBC Distribution Width 16.4 % (11.5-14.5); Red Blood Cell (RBC) Count 3.34 mill/uL (4.70-6.10); White Blood Cell (WBC) Count 7.2 thou/uL (4.8-10.8)
[2021-03-11 07:06] LABS: Anion Gap 14 mmol/L (10-20); BUN (Urea Nitrogen) 38 mg/dL (8.4-25.7); Calc. Creatinine Clearance 15 mL/min (70-130); Calcium 8.7 mg/dL (7.8-10.44); Carbon Dioxide 25 mmol/L (23-31); Chloride 102 mmol/L (98-107); Glucose 100 mg/dL (83-110); Magnesium 1.9 mg/dL (1.6-2.6); Potassium 3.8 mmol/L (3.5-5.1); Sodium 137 mmol/L (136-145)
[2021-03-11] MEDS: Mometasone 200 MCG/Formoterol 5 MCG 120 PUFF INHALER INH SCH ×2 (07:19→19:45)
[2021-03-11] MEDS ORDERED: Heparin 10,000 UNITS/ 10 ML VIAL ONE (10:51)
[2021-03-11] MEDS: Clopidogrel Bisulfate 75 MG TAB PO SCH (10:56)
[2021-03-11] MEDS: Heparin 5,000 UNITS/ML VIAL SC SCH ×3 (10:56→20:51)
[2021-03-11] MEDS: Dextrose 50% Abboject 50 ML SYRINGE SLOW IVP PRN (18:44)
[2021-03-11] MEDS: Cefepime 0.5 GM, Admixture Fee 1 EACH in Sodium Chloride 0.9% 100 ML IVPB SCH (20:44)
[2021-03-11 21:23] LABS: #Eosinphils 0.2 thou/uL (0.0-0.7); #Lymphocytes 1.2 thou/uL (1.20-3.40); #Neutrophils 6.5 thou/uL (1.40-6.50); %Basophils 0.3 % (0.0-1.0); %Eosinophils 2.4 % (0.0-10.0); %Lymphocytes 13.2 % (21.0-51.0); %Neutrophils 73.1 % (42.0-75.0); Hemoglobin 10.3 g/dL (14.0-18.0); Mean Corpuscular HGB CONC 32.2 g/dL (32.0-36.0); Mean Corpuscular Hemoglobin 29.1 pg (27.0-31.0); Mean Corpuscular Volume 90.1 fL (78.0-98.0); Mean Platelet Volume 7.5 fL (7.4-10.4); Platelet Count 232 thou/uL (130-400); RBC Distribution Width 16.4 % (11.5-14.5); Red Blood Cell (RBC) Count 3.55 mill/uL (4.70-6.10); White Blood Cell (WBC) Count 8.8 thou/uL (4.8-10.8)
[2021-03-11 21:40] LABS: Anion Gap 16 mmol/L (10-20); BUN (Urea Nitrogen) 20 mg/dL (8.4-25.7); Calc. Creatinine Clearance 22 mL/min (70-130); Calcium 8.7 mg/dL (7.8-10.44); Carbon Dioxide 27 mmol/L (23-31); Chloride 101 mmol/L (98-107); Glucose 162 mg/dL (83-110); Sodium 140 mmol/L (136-145)
[2021-03-11] MEDS ORDERED: traZODone HCl 50 MG TAB PO SCH (22:15)
[2021-03-12] MEDS ORDERED: Zolpidem Tartrate 5 MG TAB PO SCH ×2 (01:00→21:45)
[2021-03-12 02:03] LABS: Troponin I 0.582 ng/mL (< 0.028)
[2021-03-12] MEDS ORDERED: Furosemide 40 MG/4 ML VIAL SLOW IVP SCH (07:45)
[2021-03-12] MEDS: Mometasone 200 MCG/Formoterol 5 MCG 120 PUFF INHALER INH SCH ×2 (07:57→19:09)
[2021-03-12] MEDS: Heparin 5,000 UNITS/ML VIAL SC SCH ×3 (09:13→21:11)
[2021-03-12] MEDS: Clopidogrel Bisulfate 75 MG TAB PO SCH (09:14)
[2021-03-12 12:09] LABS: CKMB 3.6 ng/mL (0-6.6)
[2021-03-12] MEDS: Torsemide 20 MG TAB PO SCH (15:08)
[2021-03-12] MEDS: Cefepime 0.5 GM, Admixture Fee 1 EACH in Sodium Chloride 0.9% 100 ML IVPB SCH (21:11)
[2021-03-12] MEDS ORDERED: traZODone HCl 50 MG TAB PO SCH (21:45)
[2021-03-13] MEDS: Mometasone 200 MCG/Formoterol 5 MCG 120 PUFF INHALER INH SCH ×2 (07:32→19:11)
[2021-03-13] MEDS ORDERED: Heparin 10,000 UNITS/ 10 ML VIAL ONE (08:41)
[2021-03-13] MEDS ORDERED: Albumin 25% 25 GM/100 ML BOT IVPB SCH (09:00)
[2021-03-13] MEDS ORDERED: Torsemide 20 MG TAB PO SCH (10:00)
[2021-03-13] MEDS: Heparin 5,000 UNITS/ML VIAL SC SCH ×3 (10:06→20:47)
[2021-03-13] MEDS: Clopidogrel Bisulfate 75 MG TAB PO SCH (11:34)
[2021-03-13] MEDS: Cefepime 0.5 GM, Admixture Fee 1 EACH in Sodium Chloride 0.9% 100 ML IVPB SCH (20:35)
[2021-03-13] MEDS: Sucralfate 1 GM TAB PO SCH (21:04)
[2021-03-13] MEDS: Zolpidem Tartrate 5 MG TAB PO PRN (21:05)
[2021-03-13] MEDS: Melatonin 3 MG TAB PO PRN (21:05)
[2021-03-13] MEDS: Atorvastatin Calcium 20 MG TAB PO SCH (21:05)
[2021-03-13] MEDS: Sodium Chloride 0.65% Nasal 44 ML BOT EA NARE PRN (21:16)
[2021-03-14] MEDS: Mometasone 200 MCG/Formoterol 5 MCG 120 PUFF INHALER INH SCH ×2 (07:08→19:28)
[2021-03-14] MEDS: Clopidogrel Bisulfate 75 MG TAB PO SCH (07:53)
[2021-03-14] MEDS: Heparin 5,000 UNITS/ML VIAL SC SCH ×3 (07:54→20:56)
[2021-03-14] MEDS: Sucralfate 1 GM TAB PO SCH ×2 (08:36→20:54)
[2021-03-14] MEDS: Torsemide 20 MG TAB PO SCH (14:58)
[2021-03-14] MEDS: Atorvastatin Calcium 20 MG TAB PO SCH (20:55)
[2021-03-14] MEDS: Zolpidem Tartrate 5 MG TAB PO PRN (23:05)
[2021-03-15] MEDS: Mometasone 200 MCG/Formoterol 5 MCG 120 PUFF INHALER INH SCH ×2 (07:52→19:35)
[2021-03-15] MEDS ORDERED: Heparin 10,000 UNITS/ 10 ML VIAL ONE (09:06)
[2021-03-15 09:39] LABS: Albumin 3.5 g/dL (3.4-4.8); Anion Gap 15 mmol/L (10-20); BUN (Urea Nitrogen) 39 mg/dL (8.4-25.7); BUN/Creatinine Ratio 6.87; Calc. Creatinine Clearance 12 mL/min (70-130); Calcium 9.5 mg/dL (7.8-10.44); Carbon Dioxide 27 mmol/L (23-31); Chloride 100 mmol/L (98-107); Glucose 94 mg/dL (83-110); Phosphorus 3.5 mg/dL (2.3-4.7); Potassium 4.7 mmol/L (3.5-5.1); Sodium 137 mmol/L (136-145)
[2021-03-15] MEDS: Sucralfate 1 GM TAB PO SCH ×2 (17:32→21:04)
[2021-03-15] MEDS: Clopidogrel Bisulfate 75 MG TAB PO SCH (17:33)
[2021-03-15] MEDS: Heparin 5,000 UNITS/ML VIAL SC SCH (17:34)
[2021-03-15] MEDS: Atorvastatin Calcium 20 MG TAB PO SCH (21:05)
[2021-03-15] MEDS: Zolpidem Tartrate 5 MG TAB PO PRN ×2 (21:05→22:24)
[2021-03-16 04:48] LABS: #Eosinphils 0.2 thou/uL (0.0-0.7); #Lymphocytes 0.8 thou/uL (1.20-3.40); #Monocytes 0.9 thou/uL (0.11-0.59); #Neutrophils 6.5 thou/uL (1.40-6.50); %Basophils 0.5 % (0.0-1.0); %Eosinophils 2.2 % (0.0-10.0); %Lymphocytes 9.6 % (21.0-51.0); %Neutrophils 76.7 % (42.0-75.0); Hemoglobin 9.7 g/dL (14.0-18.0); Mean Corpuscular HGB CONC 29.2 g/dL (32.0-36.0); Mean Corpuscular Hemoglobin 26.4 pg (27.0-31.0); Mean Corpuscular Volume 90.2 fL (78.0-98.0); Platelet Count 252 thou/uL (130-400); Red Blood Cell (RBC) Count 3.67 mill/uL (4.70-6.10); White Blood Cell (WBC) Count 8.5 thou/uL (4.8-10.8)
[2021-03-16] MEDS: Mometasone 200 MCG/Formoterol 5 MCG 120 PUFF INHALER INH SCH ×2 (07:21→19:09)
[2021-03-16] MEDS ORDERED: Senokot S 8.6-50 MG TAB PO PRN (09:13)
[2021-03-16] MEDS ORDERED: Bisacodyl 5 MG TAB PO PRN (09:13)
[2021-03-16] MEDS ORDERED: Calcium Carbonate 500 MG ChewTAB PO PRN (09:13)
[2021-03-16] MEDS ORDERED: hydrALAZINE 20 MG/ML VIAL SLOW IVP PRN (09:13)
[2021-03-16] MEDS ORDERED: Loperamide HCl 2 MG CAP PO PRN (09:13)
[2021-03-16] MEDS ORDERED: HYDROcodone/Acetaminophen 5/325 mg Tablet PO PRN (09:13)
[2021-03-16] MEDS ORDERED: Loratadine 10 MG TAB PO PRN (09:13)
[2021-03-16] MEDS ORDERED: GUAIFENESIN SF SOLN 200 MG/10 ML UDCUP PO PRN (09:13)
[2021-03-16] MEDS ORDERED: Ondansetron ODT 4 MG TAB PO PRN (09:13)
[2021-03-16] MEDS ORDERED: Cepastat Lozenges 1 LOZ PO PRN (09:13)
[2021-03-16] MEDS: Enoxaparin Sodium 30 MG/0.3 ML SYRINGE SC SCH (09:32)
[2021-03-16] MEDS: Clopidogrel Bisulfate 75 MG TAB PO SCH (09:32)
[2021-03-16] MEDS: Dextrose 50% Abboject 50 ML SYRINGE SLOW IVP PRN ×3 (09:32→23:58)
[2021-03-16] MEDS: Sucralfate 1 GM TAB PO SCH ×2 (09:32→21:36)
[2021-03-16] MEDS: Dextrose 10% in Water 1,000 ML IV SCH (17:59)
[2021-03-16] MEDS: Melatonin 3 MG TAB PO PRN (21:35)
[2021-03-16] MEDS: Zolpidem Tartrate 5 MG TAB PO PRN (21:35)
[2021-03-16] MEDS: Atorvastatin Calcium 20 MG TAB PO SCH (21:36)
[2021-03-17] MEDS: Mometasone 200 MCG/Formoterol 5 MCG 120 PUFF INHALER INH SCH ×2 (07:16→18:40)
[2021-03-17] MEDS: Enoxaparin Sodium 30 MG/0.3 ML SYRINGE SC SCH (08:20)
[2021-03-17] MEDS: Clopidogrel Bisulfate 75 MG TAB PO SCH (08:20)
[2021-03-17] MEDS: Sucralfate 1 GM TAB PO SCH ×2 (08:20→21:20)
[2021-03-17] MEDS: Tamsulosin HCl 0.4 MG CAP PO SCH (08:20)
[2021-03-17] MEDS: Folic Acid/Vit B Comp W-C PO SCH (08:53)
[2021-03-17] MEDS: Dextrose 10% in Water 1,000 ML IV SCH (16:42)
[2021-03-17] MEDS: Melatonin 3 MG TAB PO PRN (21:20)
[2021-03-17] MEDS: Zolpidem Tartrate 5 MG TAB PO PRN (21:20)
[2021-03-17] MEDS: Atorvastatin Calcium 20 MG TAB PO SCH (21:21)
[2021-03-18] MEDS ORDERED: Dextrose 10% in Water 1,000 ML IV PRN (02:24)
[2021-03-18 04:54] LABS: #Basophils 0.1 thou/uL (0.0-0.2); #Eosinphils 0.3 thou/uL (0.0-0.7); #Lymphocytes 0.9 thou/uL (1.20-3.40); #Monocytes 1.1 thou/uL (0.11-0.59); #Neutrophils 5.7 thou/uL (1.40-6.50); %Basophils 0.7 % (0.0-1.0); %Eosinophils 3.5 % (0.0-10.0); %Lymphocytes 10.8 % (21.0-51.0); %Monocytes 13.3 % (0.0-10.0); %Neutrophils 71.7 % (42.0-75.0); Hemoglobin 9.7 g/dL (14.0-18.0); Mean Corpuscular HGB CONC 30.4 g/dL (32.0-36.0); Mean Corpuscular Volume 88.7 fL (78.0-98.0); Mean Platelet Volume 7.8 fL (7.4-10.4); Platelet Count 241 thou/uL (130-400); RBC Distribution Width 15.8 % (11.5-14.5)
[2021-03-18 05:15] LABS: Anion Gap 16 mmol/L (10-20); BUN (Urea Nitrogen) 43 mg/dL (8.4-25.7); Calc. Creatinine Clearance 11 mL/min (70-130); Calcium 9.3 mg/dL (7.8-10.44); Carbon Dioxide 26 mmol/L (23-31); Chloride 95 mmol/L (98-107); Glucose 103 mg/dL (83-110); Potassium 5.1 mmol/L (3.5-5.1); Sodium 132 mmol/L (136-145)
[2021-03-18] MEDS: Mometasone 200 MCG/Formoterol 5 MCG 120 PUFF INHALER INH SCH ×2 (07:04→18:19)
[2021-03-18] MEDS: Clopidogrel Bisulfate 75 MG TAB PO SCH (08:36)
[2021-03-18] MEDS: Sucralfate 1 GM TAB PO SCH ×2 (08:36→20:12)
[2021-03-18] MEDS: Folic Acid/Vit B Comp W-C PO SCH (08:36)
[2021-03-18] MEDS: Enoxaparin Sodium 30 MG/0.3 ML SYRINGE SC SCH (08:36)
[2021-03-18] MEDS: Tamsulosin HCl 0.4 MG CAP PO SCH (08:36)
[2021-03-18] MEDS ORDERED: Heparin 10,000 UNITS/ 10 ML VIAL ONE (09:10)
[2021-03-18] MEDS: Atorvastatin Calcium 20 MG TAB PO SCH (20:12)
[2021-03-18] MEDS: Heparin 5,000 UNITS/ML VIAL SC SCH (20:13)
[2021-03-18] MEDS: Zolpidem Tartrate 5 MG TAB PO PRN (21:30)
[2021-03-18] MEDS: Melatonin 3 MG TAB PO PRN (21:30)
[2021-03-19 05:22] LABS: Iron 36 ug/dL (65-175); Iron Binding Capacity, Total 165 mcg/dL (261-462)
[2021-03-19 05:56] LABS: Anion Gap 16 mmol/L (10-20); BUN (Urea Nitrogen) 27 mg/dL (8.4-25.7); Calc. Creatinine Clearance 14 mL/min (70-130); Calcium 8.8 mg/dL (7.8-10.44); Carbon Dioxide 29 mmol/L (23-31); Chloride 98 mmol/L (98-107); Glucose 97 mg/dL (83-110); Magnesium 1.6 mg/dL (1.6-2.6); Potassium 4.7 mmol/L (3.5-5.1); Sodium 138 mmol/L (136-145)
[2021-03-19] MEDS ORDERED: Magnesium 2 GM/50 ML 2 GM in Premix Bag 1 BAG IVPB SCH (06:30)
[2021-03-19] MEDS: Mometasone 200 MCG/Formoterol 5 MCG 120 PUFF INHALER INH SCH ×2 (07:22→18:38)
[2021-03-19] MEDS: Sucralfate 1 GM TAB PO SCH ×2 (08:41→20:58)
[2021-03-19] MEDS: Heparin 5,000 UNITS/ML VIAL SC SCH (08:42)
[2021-03-19] MEDS: Clopidogrel Bisulfate 75 MG TAB PO SCH (08:42)
[2021-03-19] MEDS: Folic Acid/Vit B Comp W-C PO SCH (08:42)
[2021-03-19] MEDS: Tamsulosin HCl 0.4 MG CAP PO SCH (08:42)
[2021-03-19] MEDS: Enoxaparin Sodium 30 MG/0.3 ML SYRINGE SC SCH ×2 (08:42→09:22)
[2021-03-19] MEDS ORDERED: Iron Sucrose Complex 200 MG in Sodium Chloride 0.9% 100 ML IVPB SCH (09:45)
[2021-03-19] MEDS ORDERED: EPOETIN ALFA-EPBX (ESRD) 10,000 UNIT/ML VIAL SC SCH (10:15)
[2021-03-19] MEDS ORDERED: Iron, Sodium Ferric Gluconate 250 MG in Sodium Chloride 0.9% 250 ML 250 ML IVPB SCH (10:15)
[2021-03-19] MEDS: Atorvastatin Calcium 20 MG TAB PO SCH (20:58)
[2021-03-19] MEDS: Zolpidem Tartrate 5 MG TAB PO PRN (21:02)
[2021-03-19] MEDS: Melatonin 3 MG TAB PO PRN (21:02)
[2021-03-20] MEDS: Mometasone 200 MCG/Formoterol 5 MCG 120 PUFF INHALER INH SCH ×2 (07:10→19:50)
[2021-03-20] MEDS ORDERED: Heparin 10,000 UNITS/ 10 ML VIAL ONE (08:52)
[2021-03-20] MEDS: Sucralfate 1 GM TAB PO SCH ×2 (11:41→20:42)
[2021-03-20] MEDS: Enoxaparin Sodium 30 MG/0.3 ML SYRINGE SC SCH (11:41)
[2021-03-20] MEDS: Tamsulosin HCl 0.4 MG CAP PO SCH (11:41)
[2021-03-20] MEDS: Folic Acid/Vit B Comp W-C PO SCH (11:41)
[2021-03-20] MEDS: Clopidogrel Bisulfate 75 MG TAB PO SCH (11:41)
[2021-03-20] MEDS ORDERED: Cefepime 1 GM in Sodium Chloride 0.9% 100 ML IVPB SCH (18:15)
[2021-03-20 18:54] LABS: #Eosinphils 0.2 thou/uL (0.0-0.7); #Lymphocytes 0.8 thou/uL (1.20-3.40); #Monocytes 0.8 thou/uL (0.11-0.59); #Neutrophils 5.5 thou/uL (1.40-6.50); %Eosinophils 2.8 % (0.0-10.0); %Lymphocytes 11.4 % (21.0-51.0); %Neutrophils 74.8 % (42.0-75.0); Hemoglobin 9.6 g/dL (14.0-18.0); Mean Corpuscular HGB CONC 31.4 g/dL (32.0-36.0); Mean Corpuscular Hemoglobin 27.9 pg (27.0-31.0); Mean Corpuscular Volume 88.9 fL (78.0-98.0); Mean Platelet Volume 7.2 fL (7.4-10.4); Platelet Count 278 thou/uL (130-400); RBC Distribution Width 15.6 % (11.5-14.5); Red Blood Cell (RBC) Count 3.45 mill/uL (4.70-6.10); White Blood Cell (WBC) Count 7.3 thou/uL (4.8-10.8)
[2021-03-20 18:57] LABS: INR-International Normal Ratio 1.2; PTT 42.4 sec (22.9-36.1); Prothrombin Time 15.7 sec (12.0-14.7)
[2021-03-20 19:05] LABS: Anion Gap 15 mmol/L (10-20); BUN (Urea Nitrogen) 20 mg/dL (8.4-25.7); Calc. Creatinine Clearance 17 mL/min (70-130); Calcium 9.1 mg/dL (7.8-10.44); Carbon Dioxide 29 mmol/L (23-31); Chloride 98 mmol/L (98-107); Glucose 155 mg/dL (83-110); Potassium 4.5 mmol/L (3.5-5.1); Sodium 137 mmol/L (136-145)
[2021-03-20] MEDS: Atorvastatin Calcium 20 MG TAB PO SCH (20:42)
[2021-03-20] MEDS: Melatonin 3 MG TAB PO PRN (20:51)
[2021-03-20] MEDS: Zolpidem Tartrate 5 MG TAB PO PRN (20:51)
[2021-03-21] MEDS: Mometasone 200 MCG/Formoterol 5 MCG 120 PUFF INHALER INH SCH (08:38)
[2021-03-21] MEDS: Sucralfate 1 GM TAB PO SCH (08:55)
[2021-03-21] MEDS: Folic Acid/Vit B Comp W-C PO SCH (08:55)
[2021-03-21] MEDS: Clopidogrel Bisulfate 75 MG TAB PO SCH (08:55)
[2021-03-21] MEDS: Tamsulosin HCl 0.4 MG CAP PO SCH (08:55)
[2021-03-21 10:30] VITALS: BMI 24.3
[2021-03-21 16:49] VITALS: BP 105/51; TEMP 98.7
== END 2021-03-21 16:30 | disposition short-term general hospital (02) | DRG 280 ==
LOC: ERS 21:23 → ERHOLD 03-07 00:49 → CCU 03-07 03:40 → IMCU/EMU 03-07 20:56 → ONC 03-10 18:09 → 2SW 03-12 12:09 → 2NO 03-14 09:56
PROVIDERS: ADMIT Internal Medicine; ATTEND Internal Medicine
PROC: 5A1D90Z Performance of Urinary Filtration, Continuous, Greater than 18 hours Per Day (ICD-10-PCS; principal; 2021-03-08)
PROC: 5A09457 Assistance with Respiratory Ventilation, 24-96 Consecutive Hours, Continuous Positive Airway Pressure (ICD-10-PCS; 2021-03-15)
DX: I13.2 Hypertensive heart and chronic kidney disease with heart failure and with stage 5 chronic kidney disease, or end stage renal disease (principal); I21.A1 Myocardial infarction type 2; N18.6 End stage renal disease; I50.43 Acute on chronic combined systolic (congestive) and diastolic (congestive) heart failure; J96.21 Acute and chronic respiratory failure with hypoxia; E87.2 Acidosis; N17.9 Acute kidney failure, unspecified; Z20.822 Contact with and (suspected) exposure to COVID-19; E11.22 Type 2 diabetes mellitus with diabetic chronic kidney disease; E78.5 Hyperlipidemia, unspecified; E78.00 Pure hypercholesterolemia, unspecified; I48.0 Paroxysmal atrial fibrillation; D63.1 Anemia in chronic kidney disease; D50.9 Iron deficiency anemia, unspecified; I34.0 Nonrheumatic mitral (valve) insufficiency; J44.9 Chronic obstructive pulmonary disease, unspecified; I25.10 Atherosclerotic heart disease of native coronary artery without angina pectoris; G47.33 Obstructive sleep apnea (adult) (pediatric); K21.9 Gastro-esophageal reflux disease without esophagitis; E11.51 Type 2 diabetes mellitus with diabetic peripheral angiopathy without gangrene; E11.649 Type 2 diabetes mellitus with hypoglycemia without coma; Z99.2 Dependence on renal dialysis; Z90.49 Acquired absence of other specified parts of digestive tract; Z85.46 Personal history of malignant neoplasm of prostate; Z98.890 Other specified postprocedural states; Z87.891 Personal history of nicotine dependence; Z99.81 Dependence on supplemental oxygen; Z95.5 Presence of coronary angioplasty implant and graft; Z79.4 Long term (current) use of insulin; Z79.01 Long term (current) use of anticoagulants; Z79.51 Long term (current) use of inhaled steroids; Z79.899 Other long term (current) drug therapy; Z88.8 Allergy status to other drugs, medicaments and biological substances
CPT/HCPCS: 36415; 36416; 71045; 76705; 80048; 80069; 80202; 81001; 82553; 82565; 82728; 83540; 83550; 83605; 83735; 83880; 84484; 85025; 85027; 85610; 85730; 87040; 87070; 87077; 87086; 87186; 87205; 90935; 93005; 93010; 93306; 94640; 96365; 96367; 97139; G0257; J0692; J1644; J1650; J1940; J2916; J3370; J3475; J3490; J7050; J7620; P9047; Q5105; U0002; U0005